=== PATIENT | female | born 1960 | race African-American/Black ===

== ENCOUNTER 2019-04-23 17:23 | Inpatient (IN) ==
[2019-04-23] MEDS ORDERED: SODIUM CHLORIDE 0.9% 1,000 ML IV STA ×2 (17:59→19:13)
[2019-04-23] MEDS ORDERED: ONDANSETRON 4 MG/2 ML VIAL IV STA (17:59)
[2019-04-23 18:15] LABS: Basophils % 0.4 % (0.0-0.8); Eosinophils % 0.4 % (0.00-10.9); Hematocrit 35.2 VOL% (35.7-47.0); Hemoglobin 11.1 GM/DL (12.0-16.0); Immature Granulocytes % 0.4 %; Immature Granulocytes Absolute 0.04 #; Lymphocytes # 1.8 10*3/uL (1.4-4.0); Lymphocytes % 19.2 % (21.3-54.2); Mean Corpuscular HGB Conc 31.5 GM/DL (32-36); Mean Corpuscular Volume 94.9 FL (87-102); Monocytes % 8.4 % (1.7-12.7); Neutrophils % 71.2 % (38.7-73.9); Platelet Count 314 T/CUMM (130-400); Red Blood Count 3.71 MC/CUMM (3.8-5.5); Red Cell Distribution Width 14.7 % (9.3-17.3); White Blood Count 9.5 T/CUMM (4-12)
[2019-04-23 18:38] LABS: Albumin 2.6 G/DL (3.4-5.0); Bilirubin,Total 0.4 MG/DL (0.2-1.0); Calcium 9.1 MG/DL (8.5-10.1); Osmolality,Calculated 273.8 MOS/KG (273-304); Total Protein 8.6 G/DL (6.4-8.3)
[2019-04-23] MEDS ORDERED: POTASSIUM CHLORIDE 20 MEQ TABLET PO STA (18:51)
[2019-04-23 19:41] LABS: Apearance,Urine CLEAR (Clear); Bilirubin,Urine Negative (Negative); Blood, Urine Small mg/dL (Negative); Glucose,Urine (UA) Negative (Negative); Hyaline Casts,Urine 12 /LPF (0-3); Ketones,Urine Negative (Negative); Mucus,Urine Occasional /LPF (Occasional); Nitrite,Urine Negative (Negative); Protein,Urine >=500 MG/DL; RBC,Urine 4 /HPF (0-4); Urine Color Yellow (Yellow); Urine Specific Gravity 1.015 (1.001-1.035); Urine Urobilinogen < 2.0 EU/DL (0.2-1.0); WBC,Urine 2 /HPF (0-6)
[2019-04-23] MEDS ORDERED: hydrALAZINE 20 MG/1 ML VIAL IV STA (19:44)
[2019-04-23] MEDS ORDERED: LABETALOL 20 MG/4 ML SYRINGE IV STA (21:26)
[2019-04-23] MEDS ORDERED: LABETALOL 100 MG/20 ML VIAL IV ONE (21:29)
[2019-04-23] MEDS ORDERED: PROMETHAZINE 25 MG TABLET PO PRN (22:50)
[2019-04-23] MEDS ORDERED: ONDANSETRON 4 MG/2 ML VIAL IV PRN (22:50)
[2019-04-24] MEDS: SODIUM CHLOR 0.9% KCL 40 MEQ 40 MEQ/1,000 ML BAG IV SCH ×2 (00:01→10:16)
[2019-04-24] MEDS: ACETAMINOPHEN 325 MG TABLET PO PRN (02:16)
[2019-04-24 06:22] LABS: Basophils % 0.5 % (0.0-0.8); Eosinophils # 0.1 10*3/uL (0.0-0.87); Eosinophils % 1.2 % (0.00-10.9); Hematocrit 30.2 VOL% (35.7-47.0); Hemoglobin 9.7 GM/DL (12.0-16.0); Immature Granulocytes % 0.5 %; Immature Granulocytes Absolute 0.04 #; Lymphocytes # 2.2 10*3/uL (1.4-4.0); Lymphocytes % 26.4 % (21.3-54.2); Mean Corpuscular HGB Conc 32.1 GM/DL (32-36); Mean Corpuscular Volume 93.8 FL (87-102); Monocytes % 12.2 % (1.7-12.7); Neutrophils % 59.2 % (38.7-73.9); Platelet Count 268 T/CUMM (130-400); Red Blood Count 3.22 MC/CUMM (3.8-5.5); Red Cell Distribution Width 14.8 % (9.3-17.3); White Blood Count 8.5 T/CUMM (4-12)
[2019-04-24 06:33] LABS: Calcium 8.2 MG/DL (8.5-10.1)
[2019-04-24] MEDS: ENOXAPARIN 40 MG/0.4 ML SYRINGE SUBCUT SCH (08:20)
[2019-04-24] MEDS: PANTOPRAZOLE 40 MG TABLET PO SCH (08:23)
[2019-04-24] MEDS: LABETALOL 20 MG/4 ML SYRINGE IV PRN (09:03)
[2019-04-24] MEDS ORDERED: PROMETHAZINE 25 MG TABLET PO PRN (17:56)
[2019-04-24] MEDS ORDERED: MAGNESIUM SULF RIDER 2 GM in PREMIX 1 EACH IV ONE (18:02)
[2019-04-24] MEDS: PREGABALIN 100 MG CAPSULE PO SCH (22:24)
[2019-04-24] MEDS: lisinopriL 20 MG TABLET PO SCH (22:25)
[2019-04-24] MEDS: MYCOPHENOLATE 180 MG TABLET PO SCH (22:26)
[2019-04-24] MEDS: DULoxetine 30 MG CAPSULE PO SCH (22:27)
[2019-04-24] MEDS: HYDROXYCHLOROQUINE 200 MG TABLET PO SCH (22:27)
[2019-04-25 05:12] LABS: Basophils # 0.1 10*3/uL (0.0-0.2); Basophils % 0.4 % (0.0-0.8); Eosinophils # 0.3 10*3/uL (0.0-0.87); Eosinophils % 2.5 % (0.00-10.9); Hemoglobin 8.2 GM/DL (12.0-16.0); Immature Granulocytes % 0.3 %; Immature Granulocytes Absolute 0.04 #; Lymphocytes # 3.7 10*3/uL (1.4-4.0); Lymphocytes % 30.1 % (21.3-54.2); Mean Corpuscular HGB Conc 31.5 GM/DL (32-36); Mean Corpuscular Volume 95.9 FL (87-102); Mean Platelet Volume 11.5 FL (9.6-12.0); Monocytes % 11.7 % (1.7-12.7); Platelet Count 245 T/CUMM (130-400); Red Blood Count 2.71 MC/CUMM (3.8-5.5); Red Cell Distribution Width 15.1 % (9.3-17.3); White Blood Count 12.2 T/CUMM (4-12)
[2019-04-25 05:37] LABS: Calcium 7.9 MG/DL (8.5-10.1); Osmolality,Calculated 281.1 MOS/KG (273-304)
[2019-04-25] MEDS: CYANOCOBALAMIN 500 MCG TABLET PO SCH (08:53)
[2019-04-25] MEDS: DULoxetine 30 MG CAPSULE PO SCH ×2 (08:53→20:50)
[2019-04-25] MEDS: PANTOPRAZOLE 40 MG TABLET PO SCH ×2 (08:53→18:19)
[2019-04-25] MEDS: PREGABALIN 100 MG CAPSULE PO SCH ×2 (08:53→20:50)
[2019-04-25] MEDS: amLODIPine 10 MG TABLET PO SCH (08:53)
[2019-04-25] MEDS: POTASSIUM CHLORIDE 20 MEQ TABLET PO SCH (08:53)
[2019-04-25] MEDS: hydroCHLOROthiazide 12.5 MG CAPSULE PO SCH (08:53)
[2019-04-25] MEDS: CALCIUM (CARBONATE) 600 MG TABLET PO SCH (08:53)
[2019-04-25] MEDS: ATORVASTATIN 40 MG TABLET PO SCH (08:53)
[2019-04-25] MEDS: ENOXAPARIN 40 MG/0.4 ML SYRINGE SUBCUT SCH (08:54)
[2019-04-25] MEDS: HYDROXYCHLOROQUINE 200 MG TABLET PO SCH ×2 (10:50→20:50)
[2019-04-25] MEDS: MYCOPHENOLATE 180 MG TABLET PO SCH ×4 (10:50→20:50)
[2019-04-25] MEDS ORDERED: SODIUM CHLORIDE 0.9% 1,000 ML IV PRN (14:32)
[2019-04-25] MEDS: lisinopriL 20 MG TABLET PO SCH (20:50)
[2019-04-26 05:20] LABS: Basophils # 0.1 10*3/uL (0.0-0.2); Basophils % 0.3 % (0.0-0.8); Eosinophils # 0.4 10*3/uL (0.0-0.87); Eosinophils % 2.4 % (0.00-10.9); Hematocrit 36.2 VOL% (35.7-47.0); Hemoglobin 11.8 GM/DL (12.0-16.0); Immature Granulocytes % 0.5 %; Immature Granulocytes Absolute 0.08 #; Lymphocytes % 18.1 % (21.3-54.2); Mean Corpuscular HGB Conc 32.6 GM/DL (32-36); Mean Platelet Volume 11.5 FL (9.6-12.0); Monocytes % 8.5 % (1.7-12.7); Neutrophils % 70.2 % (38.7-73.9); Platelet Count 218 T/CUMM (130-400); Red Blood Count 3.98 MC/CUMM (3.8-5.5); Red Cell Distribution Width 15.1 % (9.3-17.3); White Blood Count 16.8 T/CUMM (4-12)
[2019-04-26] MEDS: PANTOPRAZOLE 40 MG TABLET PO SCH ×2 (06:00→17:46)
[2019-04-26] MEDS: LACTATED RINGERS 1,000 ML IV SCH (06:36)
[2019-04-26] MEDS: LABETALOL 20 MG/4 ML SYRINGE IV PRN (07:32)
[2019-04-26] MEDS ORDERED: ETOMIDATE 20 MG/10 ML VIAL IV ONE (09:00)
[2019-04-26] MEDS ORDERED: LIDOCAINE 2% 5 ML VIAL ONE (09:00)
[2019-04-26] MEDS ORDERED: propofoL 200 MG/20 ML VIAL IV ONE (09:00)
[2019-04-26] MEDS: MYCOPHENOLATE 180 MG TABLET PO SCH ×4 (09:47→21:26)
[2019-04-26] MEDS: DULoxetine 30 MG CAPSULE PO SCH ×2 (09:47→21:27)
[2019-04-26] MEDS: ATORVASTATIN 40 MG TABLET PO SCH (09:47)
[2019-04-26] MEDS: hydroCHLOROthiazide 12.5 MG CAPSULE PO SCH (09:47)
[2019-04-26] MEDS: CALCIUM (CARBONATE) 600 MG TABLET PO SCH (09:47)
[2019-04-26] MEDS: PREGABALIN 100 MG CAPSULE PO SCH ×2 (09:47→21:25)
[2019-04-26] MEDS: POTASSIUM CHLORIDE 20 MEQ TABLET PO SCH (09:47)
[2019-04-26] MEDS: HYDROXYCHLOROQUINE 200 MG TABLET PO SCH ×2 (09:48→21:27)
[2019-04-26] MEDS: amLODIPine 10 MG TABLET PO SCH (09:48)
[2019-04-26] MEDS: CYANOCOBALAMIN 500 MCG TABLET PO SCH (09:48)
[2019-04-26] MEDS: cefTRIAXone 1,000 MG in SYRINGE 1 EACH IV SCH (15:58)
[2019-04-26] MEDS: AZITHROMYCIN INJ 500 MG in SODIUM CHLORIDE 0.9% 250 ML IV SCH (17:20)
[2019-04-26] MEDS: ACETAMINOPHEN 325 MG TABLET PO PRN (20:05)
[2019-04-26] MEDS: lisinopriL 20 MG TABLET PO SCH (21:26)
[2019-04-27] MEDS: PANTOPRAZOLE 40 MG TABLET PO SCH ×2 (06:01→17:47)
[2019-04-27 07:00] LABS: Basophils # 0.1 10*3/uL (0.0-0.2); Basophils % 0.4 % (0.0-0.8); Eosinophils # 0.9 10*3/uL (0.0-0.87); Eosinophils % 5.4 % (0.00-10.9); Hematocrit 37.9 VOL% (35.7-47.0); Hemoglobin 12.2 GM/DL (12.0-16.0); Immature Granulocytes % 0.4 %; Immature Granulocytes Absolute 0.07 #; Lymphocytes # 3.6 10*3/uL (1.4-4.0); Lymphocytes % 21.4 % (21.3-54.2); Mean Corpuscular HGB Conc 32.2 GM/DL (32-36); Mean Corpuscular Volume 92.4 FL (87-102); Mean Platelet Volume 10.6 FL (9.6-12.0); Monocytes % 8.3 % (1.7-12.7); Neutrophils % 64.1 % (38.7-73.9); Platelet Count 206 T/CUMM (130-400); Red Cell Distribution Width 14.8 % (9.3-17.3); White Blood Count 16.6 T/CUMM (4-12)
[2019-04-27] MEDS: DULoxetine 30 MG CAPSULE PO SCH ×2 (09:01→20:53)
[2019-04-27] MEDS: CALCIUM (CARBONATE) 600 MG TABLET PO SCH (09:01)
[2019-04-27] MEDS: CYANOCOBALAMIN 500 MCG TABLET PO SCH (09:01)
[2019-04-27] MEDS: hydroCHLOROthiazide 12.5 MG CAPSULE PO SCH (09:01)
[2019-04-27] MEDS: ATORVASTATIN 40 MG TABLET PO SCH (09:01)
[2019-04-27] MEDS: MYCOPHENOLATE 180 MG TABLET PO SCH ×4 (09:01→20:53)
[2019-04-27] MEDS: amLODIPine 10 MG TABLET PO SCH (09:01)
[2019-04-27] MEDS: HYDROXYCHLOROQUINE 200 MG TABLET PO SCH ×2 (09:02→20:51)
[2019-04-27] MEDS: POTASSIUM CHLORIDE 20 MEQ TABLET PO SCH (09:02)
[2019-04-27] MEDS: PREGABALIN 100 MG CAPSULE PO SCH ×2 (09:06→20:54)
[2019-04-27] MEDS: LACTATED RINGERS 1,000 ML IV SCH (11:24)
[2019-04-27] MEDS: cefTRIAXone 1,000 MG in SYRINGE 1 EACH IV SCH (14:54)
[2019-04-27] MEDS: ACETAMINOPHEN 325 MG TABLET PO PRN (14:55)
[2019-04-27] MEDS: AZITHROMYCIN INJ 500 MG in SODIUM CHLORIDE 0.9% 250 ML IV SCH (15:00)
[2019-04-27] MEDS: lisinopriL 20 MG TABLET PO SCH (20:52)
[2019-04-28] MEDS: PANTOPRAZOLE 40 MG TABLET PO SCH ×2 (06:15→17:44)
[2019-04-28] MEDS: ACETAMINOPHEN 325 MG TABLET PO PRN (06:16)
[2019-04-28 07:54] LABS: Basophils % 0.4 % (0.0-0.8); Eosinophils # 0.7 10*3/uL (0.0-0.87); Hematocrit 36.2 VOL% (35.7-47.0); Hemoglobin 11.9 GM/DL (12.0-16.0); Immature Granulocytes % 0.2 %; Immature Granulocytes Absolute 0.02 #; Lymphocytes # 2.6 10*3/uL (1.4-4.0); Lymphocytes % 27.7 % (21.3-54.2); Mean Corpuscular HGB Conc 32.9 GM/DL (32-36); Mean Corpuscular Volume 91.9 FL (87-102); Mean Platelet Volume 11.1 FL (9.6-12.0); Monocytes % 10.4 % (1.7-12.7); Neutrophils % 53.3 % (38.7-73.9); Platelet Count 211 T/CUMM (130-400); Red Blood Count 3.94 MC/CUMM (3.8-5.5); Red Cell Distribution Width 14.6 % (9.3-17.3); White Blood Count 9.3 T/CUMM (4-12)
[2019-04-28 08:05] LABS: Calcium 8.6 MG/DL (8.5-10.1)
[2019-04-28] MEDS: CYANOCOBALAMIN 500 MCG TABLET PO SCH (09:02)
[2019-04-28] MEDS: MYCOPHENOLATE 180 MG TABLET PO SCH ×4 (09:02→21:23)
[2019-04-28] MEDS: ATORVASTATIN 40 MG TABLET PO SCH (09:02)
[2019-04-28] MEDS: DULoxetine 30 MG CAPSULE PO SCH ×2 (09:02→21:23)
[2019-04-28] MEDS: CALCIUM (CARBONATE) 600 MG TABLET PO SCH (09:03)
[2019-04-28] MEDS: PREGABALIN 100 MG CAPSULE PO SCH ×2 (09:03→21:23)
[2019-04-28] MEDS: HYDROXYCHLOROQUINE 200 MG TABLET PO SCH ×2 (09:03→21:24)
[2019-04-28] MEDS: POTASSIUM CHLORIDE 20 MEQ TABLET PO SCH (09:03)
[2019-04-28] MEDS: hydroCHLOROthiazide 12.5 MG CAPSULE PO SCH (09:03)
[2019-04-28] MEDS: amLODIPine 10 MG TABLET PO SCH (09:10)
[2019-04-28] MEDS: ZINC OXIDE PASTE 113 GM TUBE TOP SCH ×2 (14:32→21:24)
[2019-04-28] MEDS: cefTRIAXone 1,000 MG in SYRINGE 1 EACH IV SCH (14:32)
[2019-04-28] MEDS: AZITHROMYCIN INJ 500 MG in SODIUM CHLORIDE 0.9% 250 ML IV SCH (16:42)
[2019-04-28] MEDS: lisinopriL 20 MG TABLET PO SCH (21:23)
[2019-04-28] MEDS: AMOXICILLIN 500 MG CAPSULE PO SCH (21:24)
[2019-04-29] MEDS: AMOXICILLIN 500 MG CAPSULE PO SCH (06:00)
[2019-04-29] MEDS: PANTOPRAZOLE 40 MG TABLET PO SCH (06:00)
[2019-04-29 08:32] LABS: Basophils # 0.1 10*3/uL (0.0-0.2); Basophils % 0.5 % (0.0-0.8); Eosinophils # 0.8 10*3/uL (0.0-0.87); Eosinophils % 8.7 % (0.00-10.9); Hematocrit 36.1 VOL% (35.7-47.0); Hemoglobin 11.4 GM/DL (12.0-16.0); Immature Granulocytes % 0.3 %; Immature Granulocytes Absolute 0.03 #; Lymphocytes # 2.8 10*3/uL (1.4-4.0); Lymphocytes % 30.1 % (21.3-54.2); Mean Corpuscular HGB Conc 31.6 GM/DL (32-36); Mean Corpuscular Volume 93.8 FL (87-102); Mean Platelet Volume 11.4 FL (9.6-12.0); Monocytes % 10.8 % (1.7-12.7); Neutrophils % 49.6 % (38.7-73.9); Platelet Count 221 T/CUMM (130-400); Red Blood Count 3.85 MC/CUMM (3.8-5.5); Red Cell Distribution Width 14.5 % (9.3-17.3); White Blood Count 9.3 T/CUMM (4-12)
[2019-04-29 08:49] LABS: Calcium 8.1 MG/DL (8.5-10.1); Osmolality,Calculated 274.8 MOS/KG (273-304)
[2019-04-29] MEDS: DULoxetine 30 MG CAPSULE PO SCH (09:25)
[2019-04-29] MEDS: MYCOPHENOLATE 180 MG TABLET PO SCH (09:25)
[2019-04-29] MEDS: CYANOCOBALAMIN 500 MCG TABLET PO SCH (09:26)
[2019-04-29] MEDS: ACETAMINOPHEN 325 MG TABLET PO PRN (09:26)
[2019-04-29] MEDS: ATORVASTATIN 40 MG TABLET PO SCH (09:26)
[2019-04-29] MEDS: hydroCHLOROthiazide 12.5 MG CAPSULE PO SCH (09:26)
[2019-04-29] MEDS: POTASSIUM CHLORIDE 20 MEQ TABLET PO SCH (09:26)
[2019-04-29] MEDS: amLODIPine 10 MG TABLET PO SCH (09:26)
[2019-04-29] MEDS: PREGABALIN 100 MG CAPSULE PO SCH (09:26)
[2019-04-29] MEDS: CALCIUM (CARBONATE) 600 MG TABLET PO SCH (09:26)
[2019-04-29] MEDS: ZINC OXIDE PASTE 113 GM TUBE TOP SCH (09:27)
[2019-04-29] MEDS: HYDROXYCHLOROQUINE 200 MG TABLET PO SCH (09:27)
[2019-04-29 12:14] VITALS: BP 162/97
== END 2019-04-29 11:45 | disposition home or self-care (01) | DRG 377 ==
LOC: N.EDINP 17:23 → N.ED 17:23 → SUATTDRO 20:35 → N.EDINP 21:54 → N.5E 22:49 → N.2W 04-24 08:25 → N.2E 04-28 14:52
PROVIDERS: ADMIT Internal Medicine; ATTEND Family Medicine

== ENCOUNTER 2019-11-20 06:07 | Inpatient (IN) ==
[2019-11-14 12:26] LABS: Basophils % 0.2 % (0.0-0.8); Eosinophils # 0.2 10*3/uL (0.0-0.87); Eosinophils % 2.2 % (0.00-10.9); Hematocrit 31.2 VOL% (35.7-47.0); Hemoglobin 9.6 GM/DL (12.0-16.0); Immature Granulocytes % 0.5 %; Immature Granulocytes Absolute 0.04 #; Lymphocytes # 2.3 10*3/uL (1.4-4.0); Lymphocytes % 27.2 % (21.3-54.2); Mean Corpuscular HGB Conc 30.8 GM/DL (32-36); Mean Corpuscular Volume 100.3 FL (87-102); Mean Platelet Volume 10.8 FL (9.6-12.0); Monocytes % 9.5 % (1.7-12.7); Neutrophils % 60.4 % (38.7-73.9); Platelet Count 277 T/CUMM (130-400); Red Blood Count 3.11 MC/CUMM (3.8-5.5); Red Cell Distribution Width 14.1 % (9.3-17.3); White Blood Count 8.5 T/CUMM (4-12)
[2019-11-14 12:38] LABS: PT Patient Result 10.3 SECS (9.8-11.9); Partial Thromboplastin Time 24.1 SECS (23.9-33.8)
[2019-11-14 12:42] LABS: Bilirubin,Urine Negative (Negative); Blood, Urine Negative (Negative); Glucose,Urine (UA) Negative (Negative); Ketones,Urine Negative (Negative); Mucus,Urine Occasional /LPF (Occasional); Nitrite,Urine Negative (Negative); Protein,Urine 100 MG/DL; RBC,Urine 1 /HPF (0-4); Squamous Epithelial Cell,Urine Occasional /HPF (0-10); Urine Appearance CLEAR (Clear); Urine Color Straw (Yellow); Urine Specific Gravity 1.011 (1.001-1.035); Urine Urobilinogen < 2.0 EU/DL (0.2-1.0); WBC,Urine <1 /HPF (0-6)
[2019-11-14 12:52] LABS: Albumin 2.8 G/DL (3.4-5.0); Bilirubin,Total 0.8 MG/DL (0.2-1.0); Calcium 9.3 MG/DL (8.5-10.1); Osmolality,Calculated 289.3 MOS/KG (273-304); Total Protein 8.2 G/DL (6.4-8.3)
[~2019-11-20 06:07] MED LIST: VANCOMYCIN INJ 1,000 MG in SODIUM CHLORIDE 0.9% 250 ML IV ONE; ceFAZolin 1,000 MG in SYRINGE 1 EACH IV ONE
[2019-11-20] MEDS ORDERED: VANCOMYCIN 1,000 MG VIAL ONE (06:11)
[2019-11-20] MEDS ORDERED: ceFAZolin 1,000 MG VIAL ONE (06:12)
[2019-11-20] MEDS ORDERED: BACITRACIN OINT 0.9 GM PACK TOP ONE (06:47)
[2019-11-20] MEDS ORDERED: TRANEXAMIC ACID 1,000 MG/10 ML VIAL ONE (07:18)
[2019-11-20] MEDS ORDERED: BUPIVACAINE MPF 0.25% 30 ML VIAL ONE (08:00)
[2019-11-20] MEDS ORDERED: DEXAMETHASONE 4 MG/1 ML VIAL ONE (08:00)
[2019-11-20] MEDS ORDERED: LACTATED RINGERS 1,000 ML IV SCH (08:00)
[2019-11-20] MEDS ORDERED: diphenhydrAMINE CAP 25 MG CAPSULE PO PRN (09:02)
[2019-11-20] MEDS ORDERED: ZALEPLON 5 MG CAPSULE PO PRN (09:02)
[2019-11-20] MEDS ORDERED: MORPHINE 4 MG/1 ML VIAL IV PRN (09:02)
[2019-11-20] MEDS ORDERED: MIDAZOLAM 2 MG/2 ML VIAL ONE (10:35)
[2019-11-20] MEDS ORDERED: fentaNYL 100 MCG/2 ML VIAL ONE (10:35)
[2019-11-20] MEDS ORDERED: propofoL 200 MG/20 ML VIAL IV ONE (10:35)
[2019-11-20] MEDS ORDERED: LIDOCAINE 2% 5 ML VIAL ONE (10:35)
[2019-11-20] MEDS ORDERED: ACETAMINOPHEN 1,000 MG/100 ML VIAL IV ONE (10:35)
[2019-11-20] MEDS ORDERED: SODIUM CHLORIDE 0.9% 100 ML IV ONE (10:36)
[2019-11-20 10:40] LABS: Bilirubin,Urine Negative (Negative); Blood, Urine Negative (Negative); Glucose,Urine (UA) Negative (Negative); Ketones,Urine Negative (Negative); Nitrite,Urine Negative (Negative); Protein,Urine 100 MG/DL; RBC,Urine 1 /HPF (0-4); Urine Appearance CLEAR (Clear); Urine Color Straw (Yellow); Urine Specific Gravity 1.011 (1.001-1.035); Urine Urobilinogen < 2.0 EU/DL (0.2-1.0); WBC,Urine <1 /HPF (0-6)
[2019-11-20] MEDS: ceFAZolin 1,000 MG in SYRINGE 1 EACH IV SCH ×2 (15:31→22:41)
[2019-11-20] MEDS: BACLOFEN 10 MG TABLET PO SCH ×2 (15:31→21:30)
[2019-11-20] MEDS: ONDANSETRON 4 MG/2 ML VIAL IV PRN ×2 (17:03→22:52)
[2019-11-20] MEDS: KETOROLAC 30 MG/1 ML VIAL IV SCH ×3 (17:04→21:19)
[2019-11-20] MEDS: LACTATED RINGERS 1,000 ML IV SCH ×3 (17:05→22:40)
[2019-11-20] MEDS ORDERED: INFLUENZA VIRUS VACCINE 0.5 ML SYRINGE IM ONE (18:26)
[2019-11-20] MEDS: DOCUSATE SODIUM 100 MG CAPSULE PO SCH (21:18)
[2019-11-20] MEDS: FONDAPARINUX 2.5 MG/0.5 ML SYRINGE SUBCUT SCH (21:18)
[2019-11-20] MEDS: MYCOPHENOLATE 180 MG TABLET PO SCH (21:20)
[2019-11-20] MEDS: HYDROXYCHLOROQUINE 200 MG TABLET PO SCH (21:20)
[2019-11-20] MEDS: DULoxetine 30 MG CAPSULE PO SCH (21:20)
[2019-11-21] MEDS: LACTATED RINGERS 1,000 ML IV SCH (02:33)
[2019-11-21] MEDS: KETOROLAC 30 MG/1 ML VIAL IV SCH (04:21)
[2019-11-21 07:00] LABS: Basophils % 0.1 % (0.0-0.8); Eosinophils % 0.1 % (0.00-10.9); Hematocrit 24.8 VOL% (35.7-47.0); Hemoglobin 7.9 GM/DL (12.0-16.0); Immature Granulocytes % 0.4 %; Immature Granulocytes Absolute 0.08 #; Lymphocytes # 1.1 10*3/uL (1.4-4.0); Lymphocytes % 5.8 % (21.3-54.2); Mean Corpuscular HGB Conc 31.9 GM/DL (32-36); Mean Corpuscular Volume 97.6 FL (87-102); Mean Platelet Volume 11.1 FL (9.6-12.0); Monocytes % 8.2 % (1.7-12.7); Neutrophils % 85.4 % (38.7-73.9); Platelet Count 246 T/CUMM (130-400); Red Blood Count 2.54 MC/CUMM (3.8-5.5); Red Cell Distribution Width 14.1 % (9.3-17.3); White Blood Count 18.2 T/CUMM (4-12)
[2019-11-21 07:22] LABS: Calcium 8.4 MG/DL (8.5-10.1); Osmolality,Calculated 293.3 MOS/KG (273-304)
[2019-11-21 07:24] LABS: Band Neutrophils 27 % (0-10); Lymphocytes 8 % (20-55); Nucleated Red Blood Cells 1 (0-5); Platelet Estimate Normal; Segmented Neutrophils 59 % (50-85); Total Cells Counted 100
[2019-11-21 07:25] LABS: Anisocytosis 1+; Macrocytosis Slight; Poikilocytosis Slight
[2019-11-21] MEDS: MORPHINE 4 MG/1 ML VIAL IV PRN ×2 (08:21→21:20)
[2019-11-21] MEDS: ONDANSETRON 4 MG/2 ML VIAL IV PRN (08:23)
[2019-11-21] MEDS: DULoxetine 30 MG CAPSULE PO SCH ×2 (08:28→21:20)
[2019-11-21] MEDS: CHOLECALCIFEROL 1,000 UNIT TABLET PO SCH (08:28)
[2019-11-21] MEDS: MAGNESIUM OXIDE 400 MG TABLET PO SCH (08:29)
[2019-11-21] MEDS: CYANOCOBALAMIN 500 MCG TABLET PO SCH (08:29)
[2019-11-21] MEDS: NEBIVOLOL 10 MG TABLET PO SCH (08:29)
[2019-11-21] MEDS: HYDROXYCHLOROQUINE 200 MG TABLET PO SCH ×2 (08:29→21:20)
[2019-11-21] MEDS: DOCUSATE SODIUM 100 MG CAPSULE PO SCH ×2 (08:29→21:49)
[2019-11-21] MEDS: amLODIPine 10 MG TABLET PO SCH (08:30)
[2019-11-21] MEDS: ATORVASTATIN 40 MG TABLET PO SCH (08:30)
[2019-11-21] MEDS: PANTOPRAZOLE 40 MG TABLET PO SCH (08:30)
[2019-11-21] MEDS: BACLOFEN 10 MG TABLET PO SCH ×3 (08:30→21:20)
[2019-11-21] MEDS: FERROUS SULFATE 325 MG TABLET PO SCH (08:30)
[2019-11-21] MEDS: MYCOPHENOLATE 180 MG TABLET PO SCH ×2 (08:36→21:19)
[2019-11-21] MEDS ORDERED: MAGNESIUM HYDROXIDE SUSP 30 ML UDCUP PO PRN (09:00)
[2019-11-21] MEDS ORDERED: hydroCHLOROthiazide 25 MG TABLET PO SCH (09:00)
[2019-11-21] MEDS: CELECOXIB 200 MG CAPSULE PO SCH (15:14)
[2019-11-21] MEDS: FONDAPARINUX 2.5 MG/0.5 ML SYRINGE SUBCUT SCH (21:19)
[2019-11-22] MEDS: MORPHINE 4 MG/1 ML VIAL IV PRN (03:57)
[2019-11-22 05:43] LABS: Basophils % 0.1 % (0.0-0.8); Eosinophils # 0.3 10*3/uL (0.0-0.87); Eosinophils % 1.6 % (0.00-10.9); Hematocrit 23.4 VOL% (35.7-47.0); Hemoglobin 7.3 GM/DL (12.0-16.0); Immature Granulocytes % 0.6 %; Lymphocytes # 2.7 10*3/uL (1.4-4.0); Lymphocytes % 16.5 % (21.3-54.2); Mean Corpuscular HGB Conc 31.2 GM/DL (32-36); Mean Corpuscular Volume 97.9 FL (87-102); Mean Platelet Volume 11.9 FL (9.6-12.0); Monocytes % 11.3 % (1.7-12.7); Neutrophils % 69.9 % (38.7-73.9); Platelet Count 221 T/CUMM (130-400); Red Blood Count 2.39 MC/CUMM (3.8-5.5); Red Cell Distribution Width 14.3 % (9.3-17.3); White Blood Count 16.2 T/CUMM (4-12)
[2019-11-22 06:05] LABS: Burr Cells Slight; Eosinophils 1 % (0-10); Hypochromasia 1+; Lymphocytes 13 % (20-55); Ovalocytes Slight; Platelet Estimate Adequate; Segmented Neutrophils 76 % (50-85); Total Cells Counted 100
[2019-11-22 06:06] LABS: Macrocytosis Slight
[2019-11-22 06:08] LABS: Calcium 8.8 MG/DL (8.5-10.1); Osmolality,Calculated 292.3 MOS/KG (273-304)
[2019-11-22] MEDS: CELECOXIB 200 MG CAPSULE PO SCH (09:11)
[2019-11-22] MEDS: NEBIVOLOL 10 MG TABLET PO SCH (09:11)
[2019-11-22] MEDS: DULoxetine 30 MG CAPSULE PO SCH ×2 (09:12→20:44)
[2019-11-22] MEDS: FERROUS SULFATE 325 MG TABLET PO SCH (09:12)
[2019-11-22] MEDS: DOCUSATE SODIUM 100 MG CAPSULE PO SCH ×3 (09:12→20:42)
[2019-11-22] MEDS: BACLOFEN 10 MG TABLET PO SCH ×3 (09:12→20:42)
[2019-11-22] MEDS: MAGNESIUM OXIDE 400 MG TABLET PO SCH (09:13)
[2019-11-22] MEDS: ATORVASTATIN 40 MG TABLET PO SCH (09:13)
[2019-11-22] MEDS: amLODIPine 10 MG TABLET PO SCH (09:14)
[2019-11-22] MEDS: MYCOPHENOLATE 180 MG TABLET PO SCH ×2 (09:14→20:42)
[2019-11-22] MEDS: CHOLECALCIFEROL 1,000 UNIT TABLET PO SCH (09:15)
[2019-11-22] MEDS: CYANOCOBALAMIN 500 MCG TABLET PO SCH (09:15)
[2019-11-22] MEDS: PANTOPRAZOLE 40 MG TABLET PO SCH (09:15)
[2019-11-22] MEDS: HYDROXYCHLOROQUINE 200 MG TABLET PO SCH ×2 (09:15→20:42)
[2019-11-22] MEDS ORDERED: PROCHLORPERAZINE 5 MG TABLET PO PRN (16:03)
[2019-11-22] MEDS: FONDAPARINUX 2.5 MG/0.5 ML SYRINGE SUBCUT SCH (20:42)
[2019-11-23 06:36] LABS: Basophils % 0.2 % (0.0-0.8); Eosinophils # 0.3 10*3/uL (0.0-0.87); Eosinophils % 2.4 % (0.00-10.9); Hematocrit 24.2 VOL% (35.7-47.0); Hemoglobin 7.4 GM/DL (12.0-16.0); Immature Granulocytes % 0.7 %; Immature Granulocytes Absolute 0.09 #; Lymphocytes # 1.5 10*3/uL (1.4-4.0); Lymphocytes % 10.8 % (21.3-54.2); Mean Corpuscular HGB Conc 30.6 GM/DL (32-36); Mean Corpuscular Volume 99.2 FL (87-102); Mean Platelet Volume 11.5 FL (9.6-12.0); Neutrophils % 74.9 % (38.7-73.9); Platelet Count 231 T/CUMM (130-400); Red Blood Count 2.44 MC/CUMM (3.8-5.5); Red Cell Distribution Width 14.3 % (9.3-17.3); White Blood Count 13.6 T/CUMM (4-12)
[2019-11-23] MEDS: DOCUSATE SODIUM 100 MG CAPSULE PO SCH (09:24)
[2019-11-23] MEDS: NEBIVOLOL 10 MG TABLET PO SCH (09:24)
[2019-11-23] MEDS: CELECOXIB 200 MG CAPSULE PO SCH (09:24)
[2019-11-23] MEDS: DULoxetine 30 MG CAPSULE PO SCH (09:25)
[2019-11-23] MEDS: MYCOPHENOLATE 180 MG TABLET PO SCH (09:25)
[2019-11-23] MEDS: HYDROXYCHLOROQUINE 200 MG TABLET PO SCH (09:25)
[2019-11-23] MEDS: amLODIPine 10 MG TABLET PO SCH (09:26)
[2019-11-23] MEDS: FERROUS SULFATE 325 MG TABLET PO SCH (09:26)
[2019-11-23] MEDS: BACLOFEN 10 MG TABLET PO SCH (09:26)
[2019-11-23] MEDS: ATORVASTATIN 40 MG TABLET PO SCH (09:26)
[2019-11-23] MEDS: PANTOPRAZOLE 40 MG TABLET PO SCH (09:26)
[2019-11-23] MEDS: CYANOCOBALAMIN 500 MCG TABLET PO SCH (09:26)
[2019-11-23] MEDS: MAGNESIUM OXIDE 400 MG TABLET PO SCH (11:09)
[2019-11-23] MEDS: CHOLECALCIFEROL 1,000 UNIT TABLET PO SCH (11:09)
[2019-11-23 12:46] VITALS: BP 125/86
== END 2019-11-23 14:15 | disposition swing bed (61) | DRG 470 ==
LOC: N.OR 06:07 → N.SDSINP 06:08 → EDSTATUS 10:00 → N.OR 10:15 → N.3E 12:21
PROVIDERS: ADMIT Orthopaedic Surgery; ATTEND Orthopaedic Surgery

== ENCOUNTER 2021-01-18 02:06 | Observation (INO) ==
[2021-01-18] MEDS ORDERED: LABETALOL 20 MG/4 ML SYRINGE IV STA (02:17)
[2021-01-18 02:58] LABS: Basophils % 0.1 % (0.0-0.8); Eosinophils % 0.1 % (0.00-10.9); Hematocrit 29.6 VOL% (35.7-47.0); Hemoglobin 9.1 GM/DL (12.0-16.0); Immature Granulocytes % 0.6 %; Immature Granulocytes Absolute 0.11 #; Lymphocytes # 1.5 10*3/uL (1.4-4.0); Lymphocytes % 8.7 % (21.3-54.2); Mean Corpuscular HGB Conc 30.7 GM/DL (32-36); Mean Corpuscular Volume 95.8 FL (87-102); Mean Platelet Volume 11.8 FL (9.6-12.0); Monocytes % 13.6 % (1.7-12.7); Neutrophils % 76.9 % (38.7-73.9); Platelet Count 232 T/CUMM (130-400); Red Blood Count 3.09 MC/CUMM (3.8-5.5); Red Cell Distribution Width 15.1 % (9.3-17.3); White Blood Count 17.2 T/CUMM (4-12)
[2021-01-18 03:19] LABS: Lactic Acid 0.7 MMOL/L (0.4-2.0)
[2021-01-18 03:21] LABS: Bilirubin,Urine Negative (Negative); Blood, Urine Negative (Negative); Glucose,Urine (UA) Negative (Negative); Hyaline Casts,Urine 2 /LPF (0-3); Ketones,Urine Negative (Negative); Mucus,Urine Occasional /LPF (Occasional); Nitrite,Urine Negative (Negative); Protein,Urine >=500 MG/DL; RBC,Urine <1 /HPF (0-4); Urine Appearance CLEAR (Clear); Urine Color Yellow (Yellow); Urine Specific Gravity 1.011 (1.001-1.035); Urine Urobilinogen < 2.0 EU/DL (0.2-1.0)
[2021-01-18 03:23] LABS: Alanine Aminotransferase 11 U/L (13-56); Albumin 2.2 G/DL (3.4-5.0); Alkaline Phosphatase 81 U/L (45-117); Aspartate Amino Transferase 22 U/L (0-37); Bilirubin,Total < 0.39 MG/DL (0.20-1.00); Blood Urea Nitrogen 48 MG/DL (7-18); Calcium 8.7 MG/DL (8.5-10.1); Carbon Dioxide 21 MMOL/L (21-32); Estimated Glom Filtration Rate 26 ML/MIN; Glucose 110 MG/DL (74-106); Osmolality,Calculated 288.7 MOS/KG (273-304); Potassium 5.9 MMOL/L (3.5-5.1); Sodium 138 MMOL/L (136-145); Total Protein 7.9 G/DL (6.4-8.2)
[2021-01-18 03:35] LABS: Barbiturates Screen,Urine Positive (Negative); Benzodiazepines Screen,Urine Positive (Negative); Cannabinoid Screen,Urine Negative (Negative); Opiate Screen,Urine Positive (Negative); Phencyclidine Screen,Urine Negative (Negative)
[2021-01-18] MEDS ORDERED: DEXTROSE 50% 25 GM/50 ML VIAL IV STA (04:16)
[2021-01-18] MEDS ORDERED: INSULIN REGULAR 100 UNIT/ML IV STA (04:17)
[2021-01-18] MEDS ORDERED: SODIUM CHLORIDE 0.9% 500 ML IV STA (04:19)
[2021-01-18] MEDS ORDERED: MEROPENEM 1,000 MG in SODIUM CHLORIDE 0.9% 100 ML IV STA (04:20)
[2021-01-18] MEDS ORDERED: DEXTROSE 50% 25 GM/50 ML SYRINGE IV STA (04:25)
[2021-01-18] MEDS ORDERED: hydrALAZINE 20 MG/1 ML VIAL IV PRN (07:30)
[2021-01-18] MEDS ORDERED: ONDANSETRON 4 MG/2 ML VIAL IV PRN (07:30)
[2021-01-18] MEDS ORDERED: GLUCAGON 1 MG VIAL IM PRN (07:30)
[2021-01-18] MEDS ORDERED: SODIUM CHLORIDE 0.45% 1,000 ML IV SCH (07:30)
[2021-01-18] MEDS ORDERED: DEXTROSE 50% 25 GM/50 ML SYRINGE IV PRN (07:41)
[2021-01-18] MEDS: INSULIN REGULAR 100 UNIT/ML SUBCUT SCH ×4 (07:49→21:12)
[2021-01-18 08:13] LABS: Thyroid Stimulating Hormone 3.96 uIU/ml (0.358-3.74)
[2021-01-18 08:43] LABS: Calcium 8.2 MG/DL (8.5-10.1); Osmolality,Calculated 294.1 MOS/KG (273-304); Potassium 5.2 MMOL/L (3.5-5.1)
[2021-01-18] MEDS: DOCUSATE SODIUM 100 MG CAPSULE PO SCH ×2 (11:30→21:12)
[2021-01-18] MEDS: PANTOPRAZOLE 40 MG TABLET PO SCH (11:30)
[2021-01-18] MEDS: ACETAMINOPHEN 325 MG TABLET PO PRN ×2 (16:00→21:14)
[2021-01-18] MEDS: SODIUM BICARB INJ 100 MEQ in DEXTROSE 5% 1,000 ML IV SCH (17:22)
[2021-01-18] MEDS: cefTRIAXone 2,000 MG in SODIUM CHLORIDE 0.9% 100 ML IV SCH (17:22)
[2021-01-18] MEDS: HYDROXYCHLOROQUINE 200 MG TABLET PO SCH (21:12)
[2021-01-18] MEDS: MYCOPHENOLATE MOFETIL 250 MG CAPSULE PO SCH (21:12)
[2021-01-19] MEDS: SODIUM BICARB INJ 100 MEQ in DEXTROSE 5% 1,000 ML IV SCH ×2 (13:55→21:36)
[2021-01-19] MEDS: ASPIRIN 325 MG TABLET PO SCH (13:56)
[2021-01-19] MEDS: DOCUSATE SODIUM 100 MG CAPSULE PO SCH ×2 (13:56→21:35)
[2021-01-19] MEDS: MYCOPHENOLATE MOFETIL 250 MG CAPSULE PO SCH ×2 (13:56→21:35)
[2021-01-19] MEDS: ATORVASTATIN 40 MG TABLET PO SCH (13:56)
[2021-01-19] MEDS: INSULIN REGULAR 100 UNIT/ML SUBCUT SCH ×3 (13:56→21:35)
[2021-01-19] MEDS: PANTOPRAZOLE 40 MG TABLET PO SCH (13:57)
[2021-01-19] MEDS: predniSONE 5 MG TABLET PO SCH (13:57)
[2021-01-19] MEDS: amLODIPine 10 MG TABLET PO SCH (13:57)
[2021-01-19] MEDS: HYDROXYCHLOROQUINE 200 MG TABLET PO SCH ×2 (13:57→21:35)
[2021-01-19 14:03] LABS: Calcium 8.1 MG/DL (8.5-10.1); Osmolality,Calculated 290.5 MOS/KG (273-304); Potassium 4.5 MMOL/L (3.5-5.1)
[2021-01-19] MEDS ORDERED: VANCOMYCIN INJ 750 MG in SODIUM CHLORIDE 0.9% 250 ML IV SCH (14:30)
[2021-01-19] MEDS ORDERED: VANCOMYCIN INJ 1,000 MG in SODIUM CHLORIDE 0.9% 250 ML IV PRN (15:04)
[2021-01-19] MEDS ORDERED: VANCOMYCIN INJ 1,000 MG in SODIUM CHLORIDE 0.9% 250 ML IV ONE (16:00)
[2021-01-19 16:09] LABS: Basophils % 0.1 % (0.0-0.8); Eosinophils # 0.2 10*3/uL (0.0-0.87); Eosinophils % 1.5 % (0.00-10.9); Hematocrit 26.1 VOL% (35.7-47.0); Hemoglobin 7.8 GM/DL (12.0-16.0); Immature Granulocytes % 0.5 %; Immature Granulocytes Absolute 0.06 #; Lymphocytes # 2.1 10*3/uL (1.4-4.0); Lymphocytes % 16.3 % (21.3-54.2); Mean Corpuscular HGB Conc 29.9 GM/DL (32-36); Mean Corpuscular Volume 96.7 FL (87-102); Mean Platelet Volume 12.2 FL (9.6-12.0); Neutrophils % 63.6 % (38.7-73.9); Platelet Count 219 T/CUMM (130-400); Red Cell Distribution Width 15.2 % (9.3-17.3)
[2021-01-19] MEDS: cefTRIAXone 2,000 MG in SODIUM CHLORIDE 0.9% 100 ML IV SCH (16:21)
[2021-01-19] MEDS: ENOXAPARIN 30 MG/0.3 ML SYRINGE SUBCUT SCH (16:21)
[2021-01-19] MEDS: ACETAMINOPHEN 325 MG TABLET PO PRN (23:15)
[2021-01-20] MEDS: SODIUM BICARB INJ 100 MEQ in DEXTROSE 5% 1,000 ML IV SCH ×3 (05:55→14:24)
[2021-01-20 07:57] LABS: Basophils % 0.2 % (0.0-0.8); Eosinophils # 0.3 10*3/uL (0.0-0.87); Eosinophils % 2.9 % (0.00-10.9); Hematocrit 21.7 VOL% (35.7-47.0); Hemoglobin 6.8 GM/DL (12.0-16.0); Immature Granulocytes % 0.4 %; Immature Granulocytes Absolute 0.05 #; Lymphocytes # 2.2 10*3/uL (1.4-4.0); Lymphocytes % 18.5 % (21.3-54.2); Mean Corpuscular HGB Conc 31.3 GM/DL (32-36); Mean Corpuscular Volume 95.2 FL (87-102); Mean Platelet Volume 11.6 FL (9.6-12.0); Monocytes % 16.1 % (1.7-12.7); Neutrophils % 61.9 % (38.7-73.9); Platelet Count 202 T/CUMM (130-400); Red Blood Count 2.28 MC/CUMM (3.8-5.5); Red Cell Distribution Width 14.8 % (9.3-17.3); White Blood Count 11.9 T/CUMM (4-12)
[2021-01-20 08:14] LABS: Osmolality,Calculated 286.8 MOS/KG (273-304); Potassium 3.9 MMOL/L (3.5-5.1)
[2021-01-20 08:22] LABS: Eosinophils 3 % (0-10); Hypochromasia 1+; Lymphocytes 15 % (20-55); Microcytosis 1+; Ovalocytes Slight; Platelet Estimate Adequate; Segmented Neutrophils 67 % (50-85); Total Cells Counted 100
[2021-01-20] MEDS: DOCUSATE SODIUM 100 MG CAPSULE PO SCH ×2 (09:03→20:41)
[2021-01-20] MEDS: ATORVASTATIN 40 MG TABLET PO SCH (09:04)
[2021-01-20] MEDS: MYCOPHENOLATE MOFETIL 250 MG CAPSULE PO SCH ×2 (09:04→20:42)
[2021-01-20] MEDS: PANTOPRAZOLE 40 MG TABLET PO SCH (09:04)
[2021-01-20] MEDS: HYDROXYCHLOROQUINE 200 MG TABLET PO SCH ×2 (09:04→20:41)
[2021-01-20] MEDS: predniSONE 5 MG TABLET PO SCH (09:05)
[2021-01-20] MEDS: amLODIPine 10 MG TABLET PO SCH (09:05)
[2021-01-20] MEDS: ASPIRIN 325 MG TABLET PO SCH (09:06)
[2021-01-20] MEDS ORDERED: SODIUM CHLORIDE 0.9% 1,000 ML IV PRN ×2 (10:01→18:30)
[2021-01-20] MEDS: INSULIN REGULAR 100 UNIT/ML SUBCUT SCH ×4 (10:08→20:43)
[2021-01-20] MEDS: cefTRIAXone 2,000 MG in SODIUM CHLORIDE 0.9% 100 ML IV SCH (15:57)
[2021-01-20] MEDS: ENOXAPARIN 30 MG/0.3 ML SYRINGE SUBCUT SCH (15:58)
[2021-01-21 05:50] LABS: Hematocrit 29.7 VOL% (35.7-47.0); Hemoglobin 9.4 GM/DL (12.0-16.0)
[2021-01-21] MEDS: INSULIN REGULAR 100 UNIT/ML SUBCUT SCH ×4 (08:27→21:06)
[2021-01-21] MEDS: predniSONE 5 MG TABLET PO SCH (10:27)
[2021-01-21] MEDS: HYDROXYCHLOROQUINE 200 MG TABLET PO SCH ×2 (10:27→21:05)
[2021-01-21] MEDS: DOCUSATE SODIUM 100 MG CAPSULE PO SCH ×2 (10:27→21:05)
[2021-01-21] MEDS: MYCOPHENOLATE MOFETIL 250 MG CAPSULE PO SCH ×2 (10:27→21:05)
[2021-01-21] MEDS: ATORVASTATIN 40 MG TABLET PO SCH (10:27)
[2021-01-21] MEDS: PANTOPRAZOLE 40 MG TABLET PO SCH (10:27)
[2021-01-21] MEDS: ASPIRIN 325 MG TABLET PO SCH (10:27)
[2021-01-21] MEDS: amLODIPine 10 MG TABLET PO SCH (10:29)
[2021-01-21 10:40] LABS: Basophils % 0.2 % (0.0-0.8); Eosinophils # 0.3 10*3/uL (0.0-0.87); Eosinophils % 2.9 % (0.00-10.9); Hematocrit 29.9 VOL% (35.7-47.0); Immature Granulocytes % 0.6 %; Immature Granulocytes Absolute 0.06 #; Lymphocytes # 2.1 10*3/uL (1.4-4.0); Lymphocytes % 19.8 % (21.3-54.2); Mean Corpuscular HGB Conc 31.8 GM/DL (32-36); Mean Corpuscular Volume 88.7 FL (87-102); Mean Platelet Volume 11.6 FL (9.6-12.0); Monocytes % 18.8 % (1.7-12.7); Neutrophils % 57.7 % (38.7-73.9); Platelet Count 209 T/CUMM (130-400); Red Cell Distribution Width 18.9 % (9.3-17.3); White Blood Count 10.6 T/CUMM (4-12)
[2021-01-21 10:41] LABS: Red Blood Count 3.37 MC/CUMM (3.8-5.5)
[2021-01-21 10:42] LABS: Hemoglobin 9.5 GM/DL (12.0-16.0)
[2021-01-21 10:55] LABS: Alanine Aminotransferase 22 U/L (13-56); Albumin 1.8 G/DL (3.4-5.0); Alkaline Phosphatase 65 U/L (45-117); Aspartate Amino Transferase 29 U/L (0-37); Bilirubin,Total < 0.39 MG/DL (0.20-1.00); Blood Urea Nitrogen 43 MG/DL (7-18); Carbon Dioxide 31 MMOL/L (21-32); Estimated Glom Filtration Rate 25 ML/MIN; Glucose 91 MG/DL (74-106); Potassium 3.8 MMOL/L (3.5-5.1); Sodium 136 MMOL/L (136-145); Total Protein 6.5 G/DL (6.4-8.2)
[2021-01-21 10:59] LABS: Eosinophils 3 % (0-10); Hypochromasia 1+; Lymphocytes 24 % (20-55); Microcytosis 1+; Ovalocytes Slight; Segmented Neutrophils 63 % (50-85); Total Cells Counted 100
[2021-01-21 11:00] LABS: Platelet Estimate Normal
[2021-01-21] MEDS: SODIUM BICARB INJ 100 MEQ in DEXTROSE 5% 1,000 ML IV SCH (12:32)
[2021-01-21] MEDS ORDERED: VANCOMYCIN INJ 1,000 MG in SODIUM CHLORIDE 0.9% 250 ML IV ONE (13:00)
[2021-01-21] MEDS: ENOXAPARIN 30 MG/0.3 ML SYRINGE SUBCUT SCH (13:25)
[2021-01-21] MEDS: cefTRIAXone 2,000 MG in SODIUM CHLORIDE 0.9% 100 ML IV SCH (16:46)
[2021-01-22] MEDS: SODIUM BICARB INJ 100 MEQ in DEXTROSE 5% 1,000 ML IV SCH ×2 (00:53→07:34)
[2021-01-22 04:44] LABS: Basophils % 0.2 % (0.0-0.8); Eosinophils # 0.5 10*3/uL (0.0-0.87); Hematocrit 27.1 VOL% (35.7-47.0); Hemoglobin 8.5 GM/DL (12.0-16.0); Immature Granulocytes % 0.7 %; Immature Granulocytes Absolute 0.07 #; Lymphocytes # 2.1 10*3/uL (1.4-4.0); Lymphocytes % 20.9 % (21.3-54.2); Mean Corpuscular HGB Conc 31.4 GM/DL (32-36); Mean Corpuscular Volume 88.6 FL (87-102); Mean Platelet Volume 11.3 FL (9.6-12.0); Monocytes % 18.9 % (1.7-12.7); Neutrophils % 54.3 % (38.7-73.9); Platelet Count 212 T/CUMM (130-400); Red Blood Count 3.06 MC/CUMM (3.8-5.5); Red Cell Distribution Width 18.3 % (9.3-17.3); White Blood Count 9.9 T/CUMM (4-12)
[2021-01-22 05:12] LABS: Eosinophils 3 % (0-10); Hypochromasia Slight; Lymphocytes 19 % (20-55); Platelet Estimate Normal; Segmented Neutrophils 67 % (50-85); Total Cells Counted 100
[2021-01-22 05:33] LABS: Calcium 8.1 MG/DL (8.5-10.1); Potassium 3.3 MMOL/L (3.5-5.1)
[2021-01-22 05:36] LABS: Albumin 1.6 G/DL (3.4-5.0); Bilirubin,Total 0.9 MG/DL (0.20-1.00); Calcium 7.8 MG/DL (8.5-10.1); Osmolality,Calculated 283.7 MOS/KG (273-304); Potassium 3.4 MMOL/L (3.5-5.1); Total Protein 6.3 G/DL (6.4-8.2)
[2021-01-22] MEDS: INSULIN REGULAR 100 UNIT/ML SUBCUT SCH ×4 (08:27→20:34)
[2021-01-22] MEDS: DOCUSATE SODIUM 100 MG CAPSULE PO SCH ×2 (08:45→20:33)
[2021-01-22] MEDS: PANTOPRAZOLE 40 MG TABLET PO SCH (08:45)
[2021-01-22] MEDS: ATORVASTATIN 40 MG TABLET PO SCH (08:45)
[2021-01-22] MEDS: predniSONE 5 MG TABLET PO SCH (08:45)
[2021-01-22] MEDS: MYCOPHENOLATE MOFETIL 250 MG CAPSULE PO SCH ×2 (08:45→20:34)
[2021-01-22] MEDS: ASPIRIN 325 MG TABLET PO SCH (08:45)
[2021-01-22] MEDS: HYDROXYCHLOROQUINE 200 MG TABLET PO SCH ×2 (08:45→20:33)
[2021-01-22] MEDS: amLODIPine 10 MG TABLET PO SCH (08:46)
[2021-01-22] MEDS ORDERED: POTASSIUM CHLORIDE 20 MEQ TABLET PO ONE (09:00)
[2021-01-22] MEDS: ENOXAPARIN 30 MG/0.3 ML SYRINGE SUBCUT SCH (14:37)
[2021-01-22] MEDS: cefTRIAXone 2,000 MG in SODIUM CHLORIDE 0.9% 100 ML IV SCH (15:34)
[2021-01-23 05:08] LABS: Basophils % 0.2 % (0.0-0.8); Eosinophils # 0.4 10*3/uL (0.0-0.87); Eosinophils % 4.7 % (0.00-10.9); Hematocrit 28.5 VOL% (35.7-47.0); Hemoglobin 8.7 GM/DL (12.0-16.0); Immature Granulocytes % 0.9 %; Immature Granulocytes Absolute 0.08 #; Lymphocytes # 1.2 10*3/uL (1.4-4.0); Lymphocytes % 12.7 % (21.3-54.2); Mean Corpuscular HGB Conc 30.5 GM/DL (32-36); Mean Corpuscular Volume 90.5 FL (87-102); Mean Platelet Volume 11.6 FL (9.6-12.0); Monocytes % 19.7 % (1.7-12.7); Neutrophils % 61.8 % (38.7-73.9); Platelet Count 210 T/CUMM (130-400); Red Blood Count 3.15 MC/CUMM (3.8-5.5); Red Cell Distribution Width 17.8 % (9.3-17.3)
[2021-01-23 05:30] LABS: Calcium 8.4 MG/DL (8.5-10.1); Potassium 4.6 MMOL/L (3.5-5.1)
[2021-01-23 05:38] LABS: Eosinophils 7 % (0-10); Lymphocytes 14 % (20-55); Platelet Estimate Adequate; Segmented Neutrophils 69 % (50-85); Total Cells Counted 100
[2021-01-23 05:39] LABS: Hypochromasia 1+; Microcytosis 1+
[2021-01-23] MEDS: INSULIN REGULAR 100 UNIT/ML SUBCUT SCH ×2 (08:38→12:34)
[2021-01-23] MEDS: amLODIPine 10 MG TABLET PO SCH (08:51)
[2021-01-23] MEDS: MYCOPHENOLATE MOFETIL 250 MG CAPSULE PO SCH (08:51)
[2021-01-23] MEDS: ATORVASTATIN 40 MG TABLET PO SCH (08:51)
[2021-01-23] MEDS: PANTOPRAZOLE 40 MG TABLET PO SCH (08:51)
[2021-01-23] MEDS: DOCUSATE SODIUM 100 MG CAPSULE PO SCH (08:51)
[2021-01-23] MEDS: ASPIRIN 325 MG TABLET PO SCH (08:51)
[2021-01-23] MEDS: predniSONE 5 MG TABLET PO SCH (08:52)
[2021-01-23] MEDS: HYDROXYCHLOROQUINE 200 MG TABLET PO SCH (08:52)
[2021-01-23 12:53] VITALS: BP 150/75
== END 2021-01-23 16:00 | disposition swing bed (61) ==
LOC: N.ED 02:06 → N.EDINP 02:06 → SUATTDRO 05:53 → N.TELEN 15:45 → SUATTDRO 01-20 14:35
PROVIDERS: ADMIT Emergency Medicine; ATTEND Internal Medicine

== ENCOUNTER 2021-08-03 12:40 | Inpatient (IN) ==
[2021-08-03] MEDS ORDERED: HYDROmorphone 1 MG/1 ML SYRINGE IM STA (18:55)
[2021-08-03] MEDS ORDERED: NICOTINE 21 MG/24 HR PATCH TRANSDERM PRN (21:26)
[2021-08-03] MEDS ORDERED: ZALEPLON 5 MG CAPSULE PO PRN (21:26)
[2021-08-03] MEDS ORDERED: ONDANSETRON 4 MG/2 ML VIAL IV PRN (21:26)
[2021-08-03] MEDS ORDERED: ALBUTEROL/IPRATROPIUM 3 ML NEB RESP TX PRN (21:26)
[2021-08-03] MEDS ORDERED: GLUCAGON 1 MG VIAL IM PRN (21:26)
[2021-08-03] MEDS ORDERED: guaiFENesin/DM ER 600-30 MG TABLET PO PRN (21:26)
[2021-08-03] MEDS ORDERED: diphenhydrAMINE CAP 25 MG CAPSULE PO PRN (21:26)
[2021-08-03] MEDS ORDERED: hydrALAZINE 20 MG/1 ML VIAL IV PRN (21:26)
[2021-08-03] MEDS ORDERED: DEXTROSE 10% 250 ML BAG IV PRN (21:29)
[2021-08-03 22:25] LABS: Basophils % 0.1 % (0.0-0.8); Hematocrit 18.9 VOL% (35.7-47.0); Immature Granulocytes % 1.1 %; Immature Granulocytes Absolute 0.23 #; Lymphocytes # 1.3 10*3/uL (1.4-4.0); Lymphocytes % 6.2 % (21.3-54.2); Mean Corpuscular HGB Conc 29.6 GM/DL (32-36); Mean Corpuscular Volume 101.6 FL (87-102); Mean Platelet Volume 11.1 FL (9.6-12.0); Monocytes # 2.5 10*3/uL (0.11-0.8); Neutrophils % 80.6 % (38.7-73.9); Platelet Count 197 T/CUMM (130-400); Red Blood Count 1.86 MC/CUMM (3.8-5.5); Red Cell Distribution Width 13.7 % (9.3-17.3); White Blood Count 20.5 T/CUMM (4-12)
[2021-08-03 22:32] LABS: Hemoglobin 5.6 GM/DL (12.0-16.0)
[2021-08-03 22:34] LABS: PT Patient Result 11.4 SECS (10.5-12.0)
[2021-08-03] MEDS ORDERED: ACETAMINOPHEN 325 MG TABLET PO PRN (22:37)
[2021-08-03] MEDS ORDERED: diphenhydrAMINE 50 MG/1 ML VIAL IV PRN (22:37)
[2021-08-03] MEDS ORDERED: SODIUM CHLORIDE 0.9% 1,000 ML IV PRN (22:37)
[2021-08-03] MEDS ORDERED: FUROSEMIDE 40 MG/4 ML VIAL IV PRN (22:43)
[2021-08-03 22:48] LABS: Lymphocytes 5 % (20-55); Total Cells Counted 100
[2021-08-03 22:49] LABS: Platelet Estimate Normal
[2021-08-03] MEDS: MORPHINE 2 MG/1 ML SYRINGE IV PRN (22:50)
[2021-08-03] MEDS: DEXTROSE 5% NACL 0.9% 1,000 ML IV SCH (22:55)
[2021-08-03 22:59] LABS: Calcium 8.9 MG/DL (8.5-10.1); Osmolality,Calculated 293.5 MOS/KG (273-304); Potassium 4.4 MMOL/L (3.5-5.1)
[2021-08-04 01:04] LABS: Basophils % 0.1 % (0.0-0.8); Eosinophils % 0.1 % (0.00-10.9); Hematocrit 21.2 VOL% (35.7-47.0); Immature Granulocytes % 0.6 %; Immature Granulocytes Absolute 0.11 #; Lymphocytes # 1.7 10*3/uL (1.4-4.0); Lymphocytes % 9.5 % (21.3-54.2); Mean Corpuscular HGB Conc 30.2 GM/DL (32-36); Mean Corpuscular Volume 99.5 FL (87-102); Mean Platelet Volume 11.1 FL (9.6-12.0); Monocytes # 2.7 10*3/uL (0.11-0.8); Monocytes % 14.9 % (1.7-12.7); Neutrophils % 74.8 % (38.7-73.9); Platelet Count 192 T/CUMM (130-400); Red Blood Count 2.13 MC/CUMM (3.8-5.5); Red Cell Distribution Width 13.8 % (9.3-17.3)
[2021-08-04 01:06] LABS: Hemoglobin 6.4 GM/DL (12.0-16.0)
[2021-08-04 01:24] LABS: Osmolality,Calculated 291.8 MOS/KG (273-304); Potassium 4.4 MMOL/L (3.5-5.1)
[2021-08-04 01:48] LABS: RBC,Urine <1 /HPF (0-4); Squamous Epithelial Cell,Urine Occasional /HPF (0-10)
[2021-08-04 01:49] LABS: Bilirubin,Urine Negative (Negative); Blood, Urine Small mg/dL (Negative); Glucose,Urine (UA) Negative (Negative); Ketones,Urine Negative (Negative); Nitrite,Urine Negative (Negative); Protein,Urine >=300 mg/dL (Negative); Urine Appearance Clear (Clear); Urine Color Yellow (Yellow); Urine Urobilinogen 0.2 eU/dL (<2.0)
[2021-08-04] MEDS: MORPHINE 2 MG/1 ML SYRINGE IV PRN ×4 (04:22→20:49)
[2021-08-04] MEDS ORDERED: SODIUM CHLORIDE 0.9% 1,000 ML IV PRN (06:24)
[2021-08-04 09:38] LABS: Hematocrit 28.7 VOL% (35.7-47.0); Hemoglobin 9.5 GM/DL (12.0-16.0)
[2021-08-04] MEDS: DEXTROSE 5% NACL 0.9% 1,000 ML IV SCH ×2 (09:50→21:00)
[2021-08-04] MEDS: PANTOPRAZOLE 40 MG TABLET PO SCH (10:40)
[2021-08-04] MEDS: amLODIPine 10 MG TABLET PO SCH (20:47)
[2021-08-04] MEDS: NEBIVOLOL 10 MG TABLET PO SCH (20:47)
[2021-08-04] MEDS: ATORVASTATIN 40 MG TABLET PO SCH (20:47)
[2021-08-04] MEDS: HYDROXYCHLOROQUINE 200 MG TABLET PO SCH (20:47)
[2021-08-05 04:49] LABS: Basophils % 0.1 % (0.0-0.8); Eosinophils # 0.3 10*3/uL (0.0-0.87); Eosinophils % 2.5 % (0.00-10.9); Hematocrit 29.1 VOL% (35.7-47.0); Hemoglobin 9.4 GM/DL (12.0-16.0); Immature Granulocytes % 0.7 %; Immature Granulocytes Absolute 0.09 #; Lymphocytes # 1.6 10*3/uL (1.4-4.0); Lymphocytes % 12.1 % (21.3-54.2); Mean Corpuscular HGB Conc 32.3 GM/DL (32-36); Mean Corpuscular Volume 94.8 FL (87-102); Mean Platelet Volume 11.2 FL (9.6-12.0); Monocytes % 14.9 % (1.7-12.7); Neutrophils % 69.7 % (38.7-73.9); Platelet Count 154 T/CUMM (130-400); Red Blood Count 3.07 MC/CUMM (3.8-5.5); Red Cell Distribution Width 14.8 % (9.3-17.3); White Blood Count 13.4 T/CUMM (4-12)
[2021-08-05 05:11] LABS: Calcium 8.5 MG/DL (8.5-10.1); Osmolality,Calculated 294.5 MOS/KG (273-304); Potassium 4.1 MMOL/L (3.5-5.1)
[2021-08-05] MEDS ORDERED: PANTOPRAZOLE 40 MG VIAL IV ONE (06:49)
[2021-08-05] MEDS ORDERED: GABAPENTIN 400 MG CAPSULE PO ONE (06:49)
[2021-08-05] MEDS ORDERED: ACETAMINOPHEN 500 MG TABLET PO ONE (06:49)
[2021-08-05] MEDS: PANTOPRAZOLE 40 MG TABLET PO SCH (10:02)
[2021-08-05] MEDS: HYDROXYCHLOROQUINE 200 MG TABLET PO SCH ×2 (10:03→21:35)
[2021-08-05] MEDS ORDERED: LACTATED RINGERS 1,000 ML IV SCH (11:00)
[2021-08-05] MEDS ORDERED: MIDAZOLAM 2 MG/2 ML VIAL ONE ×2 (11:18→12:36)
[2021-08-05] MEDS ORDERED: BUPIVACAINE SPINAL 0.75% 2 ML AMP SPINAL ONE (11:18)
[2021-08-05] MEDS ORDERED: DEXMEDETOMIDINE 200 MCG/2 ML VIAL ONE (11:18)
[2021-08-05] MEDS ORDERED: fentaNYL 100 MCG/2 ML VIAL ONE (11:19)
[2021-08-05] MEDS ORDERED: buprenorphine HCL 0.3 MG/ML VIAL ONE (11:19)
[2021-08-05] MEDS ORDERED: PHENYLEPHRINE 1 MG/10 ML SYRINGE IV ONE (12:14)
[2021-08-05] MEDS ORDERED: ONDANSETRON 4 MG/2 ML VIAL ONE (12:14)
[2021-08-05] MEDS ORDERED: HYDROCORTISONE 100 MG VIAL ONE (12:23)
[2021-08-05] MEDS ORDERED: TRANEXAMIC ACID 1,000 MG/10 ML VIAL ONE (12:24)
[2021-08-05] MEDS ORDERED: BACITRACIN OINT 0.9 GM PACK TOP ONE (12:25)
[2021-08-05] MEDS ORDERED: SODIUM CHLORIDE 0.9% 100 ML IV ONE (12:36)
[2021-08-05] MEDS ORDERED: MAGNESIUM HYDROXIDE SUSP 30 ML UDCUP PO PRN (13:02)
[2021-08-05] MEDS ORDERED: ROPIVACAINE 0.5% 30 ML VIAL ONE (13:09)
[2021-08-05] MEDS ORDERED: DEXAMETHASONE 4 MG/1 ML VIAL ONE (13:09)
[2021-08-05] MEDS: LACTATED RINGERS 1,000 ML IV SCH (13:45)
[2021-08-05] MEDS: DEXTROSE 5% NACL 0.9% 1,000 ML IV SCH (15:46)
[2021-08-05] MEDS: DOCUSATE SODIUM 100 MG CAPSULE PO SCH (21:35)
[2021-08-05] MEDS: amLODIPine 10 MG TABLET PO SCH (21:35)
[2021-08-05] MEDS: ATORVASTATIN 40 MG TABLET PO SCH (21:36)
[2021-08-05] MEDS: NEBIVOLOL 10 MG TABLET PO SCH (21:36)
[2021-08-06] MEDS: LACTATED RINGERS 1,000 ML IV SCH ×3 (00:31→21:00)
[2021-08-06 05:38] LABS: Basophils % 0.1 % (0.0-0.8); Hematocrit 29.1 VOL% (35.7-47.0); Hemoglobin 9.3 GM/DL (12.0-16.0); Immature Granulocytes % 0.5 %; Immature Granulocytes Absolute 0.07 #; Lymphocytes # 0.6 10*3/uL (1.4-4.0); Lymphocytes % 4.5 % (21.3-54.2); Mean Platelet Volume 11.3 FL (9.6-12.0); Monocytes # 1.4 10*3/uL (0.11-0.8); Monocytes % 10.9 % (1.7-12.7); Platelet Count 177 T/CUMM (130-400); Red Blood Count 3.03 MC/CUMM (3.8-5.5); Red Cell Distribution Width 14.3 % (9.3-17.3); White Blood Count 13.2 T/CUMM (4-12)
[2021-08-06 05:54] LABS: Calcium 8.3 MG/DL (8.5-10.1); Osmolality,Calculated 292.7 MOS/KG (273-304); Potassium 4.6 MMOL/L (3.5-5.1)
[2021-08-06 05:58] LABS: Lymphocytes 1 % (20-55); Total Cells Counted 100
[2021-08-06 05:59] LABS: Microcytosis 1+; Ovalocytes Slight; Platelet Estimate Adequate
[2021-08-06] MEDS: HYDROXYCHLOROQUINE 200 MG TABLET PO SCH ×2 (09:32→20:56)
[2021-08-06] MEDS: PANTOPRAZOLE 40 MG TABLET PO SCH (09:32)
[2021-08-06] MEDS: ENOXAPARIN 30 MG/0.3 ML SYRINGE SUBCUT SCH (09:32)
[2021-08-06] MEDS: DOCUSATE SODIUM 100 MG CAPSULE PO SCH ×2 (09:32→21:00)
[2021-08-06] MEDS: MORPHINE 2 MG/1 ML SYRINGE IV PRN (09:42)
[2021-08-06] MEDS ORDERED: FUROSEMIDE 40 MG/4 ML VIAL IV ONE (12:00)
[2021-08-06] MEDS: METOCLOPRAMIDE 10 MG TABLET PO SCH (17:58)
[2021-08-06] MEDS: amLODIPine 10 MG TABLET PO SCH (20:55)
[2021-08-06] MEDS: NEBIVOLOL 10 MG TABLET PO SCH (20:55)
[2021-08-06] MEDS: ATORVASTATIN 40 MG TABLET PO SCH (20:55)
[2021-08-07 04:50] LABS: Basophils % 0.1 % (0.0-0.8); Eosinophils # 0.4 10*3/uL (0.0-0.87); Eosinophils % 3.1 % (0.00-10.9); Hemoglobin 8.2 GM/DL (12.0-16.0); Immature Granulocytes % 0.6 %; Immature Granulocytes Absolute 0.07 #; Lymphocytes # 2.1 10*3/uL (1.4-4.0); Lymphocytes % 16.5 % (21.3-54.2); Mean Corpuscular HGB Conc 31.5 GM/DL (32-36); Mean Corpuscular Volume 96.7 FL (87-102); Mean Platelet Volume 11.6 FL (9.6-12.0); Monocytes # 1.7 10*3/uL (0.11-0.8); Monocytes % 13.4 % (1.7-12.7); Neutrophils % 66.3 % (38.7-73.9); Platelet Count 177 T/CUMM (130-400); Red Blood Count 2.69 MC/CUMM (3.8-5.5); Red Cell Distribution Width 14.1 % (9.3-17.3); White Blood Count 12.6 T/CUMM (4-12)
[2021-08-07 05:07] LABS: Calcium 7.8 MG/DL (8.5-10.1); Osmolality,Calculated 291.8 MOS/KG (273-304); Potassium 4.1 MMOL/L (3.5-5.1)
[2021-08-07] MEDS: LACTATED RINGERS 1,000 ML IV SCH (05:41)
[2021-08-07] MEDS: MORPHINE 2 MG/1 ML SYRINGE IV PRN ×2 (08:56→13:22)
[2021-08-07] MEDS: DOCUSATE SODIUM 100 MG CAPSULE PO SCH ×2 (08:57→20:39)
[2021-08-07] MEDS: HYDROXYCHLOROQUINE 200 MG TABLET PO SCH ×2 (08:57→20:40)
[2021-08-07] MEDS: METOCLOPRAMIDE 10 MG TABLET PO SCH ×2 (08:57→16:07)
[2021-08-07] MEDS: ENOXAPARIN 30 MG/0.3 ML SYRINGE SUBCUT SCH (08:57)
[2021-08-07] MEDS: PANTOPRAZOLE 40 MG TABLET PO SCH (08:57)
[2021-08-07] MEDS ORDERED: FUROSEMIDE 40 MG/4 ML VIAL IV ONE (09:00)
[2021-08-07 15:15] LABS: Bacteria,Urine Moderate /HPF (Few); Mucus,Urine Occasional /LPF (Occasional); RBC,Urine 2 /HPF (0-4)
[2021-08-07 15:19] LABS: Bilirubin,Urine Negative (Negative); Blood, Urine Trace mg/dL (Negative); Glucose,Urine (UA) Negative (Negative); Ketones,Urine Negative (Negative); Nitrite,Urine Negative (Negative); Protein,Urine 30 mg/dL (Negative); Urine Appearance Clear (Clear); Urine Color Yellow (Yellow); Urine Urobilinogen 0.2 eU/dL (<2.0); Urine pH 5.5 (4.5-8.0)
[2021-08-07] MEDS: NEBIVOLOL 10 MG TABLET PO SCH (20:39)
[2021-08-07] MEDS: ATORVASTATIN 40 MG TABLET PO SCH (20:39)
[2021-08-07] MEDS: amLODIPine 10 MG TABLET PO SCH (20:39)
[2021-08-08 04:42] LABS: Basophils % 0.2 % (0.0-0.8); Eosinophils # 0.3 10*3/uL (0.0-0.87); Eosinophils % 3.1 % (0.00-10.9); Hematocrit 27.6 VOL% (35.7-47.0); Hemoglobin 8.7 GM/DL (12.0-16.0); Immature Granulocytes % 0.5 %; Immature Granulocytes Absolute 0.06 #; Lymphocytes # 1.9 10*3/uL (1.4-4.0); Lymphocytes % 17.5 % (21.3-54.2); Mean Corpuscular HGB Conc 31.5 GM/DL (32-36); Mean Corpuscular Volume 96.5 FL (87-102); Mean Platelet Volume 11.3 FL (9.6-12.0); Monocytes # 1.9 10*3/uL (0.11-0.8); Monocytes % 16.8 % (1.7-12.7); Neutrophils % 61.9 % (38.7-73.9); Platelet Count 208 T/CUMM (130-400); Red Blood Count 2.86 MC/CUMM (3.8-5.5); Red Cell Distribution Width 13.7 % (9.3-17.3)
[2021-08-08 04:57] LABS: Calcium 8.6 MG/DL (8.5-10.1); Osmolality,Calculated 293.5 MOS/KG (273-304); Potassium 4.4 MMOL/L (3.5-5.1)
[2021-08-08 05:23] LABS: Eosinophils 5 % (0-10); Lymphocytes 8 % (20-55); Total Cells Counted 100
[2021-08-08 05:24] LABS: Platelet Estimate Adequate; Poikilocytosis 1+
[2021-08-08 05:25] LABS: Schistocytes 1+
[2021-08-08 05:26] LABS: Acanthocytes 1+
[2021-08-08] MEDS: METOCLOPRAMIDE 10 MG TABLET PO SCH (08:14)
[2021-08-08] MEDS: DOCUSATE SODIUM 100 MG CAPSULE PO SCH (08:14)
[2021-08-08] MEDS: HYDROXYCHLOROQUINE 200 MG TABLET PO SCH (08:15)
[2021-08-08] MEDS: ENOXAPARIN 30 MG/0.3 ML SYRINGE SUBCUT SCH (08:18)
[2021-08-08] MEDS: PANTOPRAZOLE 40 MG TABLET PO SCH (08:22)
[2021-08-08 11:35] VITALS: BP 135/74
== END 2021-08-08 13:36 | disposition swing bed (61) | DRG 481 ==
LOC: N.ED 12:40 → N.EDINP 21:26 → SUATTDRO 21:26 → N.EDINP 23:30 → N.3E 23:45
PROVIDERS: ADMIT Internal Medicine; ATTEND Family Medicine

== ENCOUNTER 2021-09-18 21:33 | Inpatient (IN) ==
[2021-09-18] MEDS ORDERED: SODIUM CHLORIDE 0.9% 500 ML IV STA (22:09)
[2021-09-18 22:25] LABS: Arterial Base Excess iSTAT -6 MMOL/L (-2.5-2.5); Arterial Bicarbonate iSTAT 18.9 MMOL/L (20-26); Arterial O2 Saturation iSTAT 97 % (95-100); Arterial PCO2 iSTAT 33 MM HG (35-48); Arterial PO2 iSTAT 95 MM HG (80-95); Arterial Total CO2 iSTAT 20 MMO/L (23-27); Arterial pH iSTAT 7.364 (7.35-7.45)
[2021-09-18 23:32] LABS: Basophils % 0.2 % (0.0-0.8); Eosinophils # 0.2 10*3/uL (0.0-0.87); Eosinophils % 2.1 % (0.00-10.9); Hematocrit 29.5 VOL% (35.7-47.0); Hemoglobin 9.1 GM/DL (12.0-16.0); Immature Granulocytes % 0.4 %; Immature Granulocytes Absolute 0.04 #; Lymphocytes # 1.6 10*3/uL (1.4-4.0); Lymphocytes % 16.2 % (21.3-54.2); Mean Corpuscular HGB Conc 30.8 GM/DL (32-36); Mean Corpuscular Volume 92.2 FL (87-102); Mean Platelet Volume 10.7 FL (9.6-12.0); Monocytes # 0.7 10*3/uL (0.11-0.8); Monocytes % 7.5 % (1.7-12.7); Neutrophils % 73.6 % (38.7-73.9); Platelet Count 378 T/CUMM (130-400); Red Cell Distribution Width 13.8 % (9.3-17.3); White Blood Count 9.9 T/CUMM (4-12)
[2021-09-18 23:51] LABS: Alanine Aminotransferase 10 U/L (13-56); Albumin 2.9 G/DL (3.4-5.0); Alkaline Phosphatase 89 U/L (45-117); Aspartate Amino Transferase 10 U/L (0-37); Bilirubin,Total < 0.39 MG/DL (0.20-1.00); Blood Urea Nitrogen 114 MG/DL (7-18); Calcium 8.8 MG/DL (8.5-10.1); Carbon Dioxide 19 MMOL/L (21-32); Chloride 110 MMOL/L (98-107); Glucose 109 MG/DL (74-106); Osmolality,Calculated 313.5 MOS/KG (273-304); Potassium 4.8 MMOL/L (3.5-5.1); Sodium 139 MMOL/L (136-145); Total Protein 7.8 G/DL (6.4-8.2)
[2021-09-19] MEDS ORDERED: ONDANSETRON 4 MG/2 ML VIAL IV PRN (00:18)
[2021-09-19 00:20] LABS: Bacteria,Urine Moderate /HPF (Few); RBC,Urine 5 /HPF (0-4)
[2021-09-19 00:21] LABS: Bilirubin,Urine Negative (Negative); Blood, Urine Trace mg/dL (Negative); Glucose,Urine (UA) Negative (Negative); Ketones,Urine Negative (Negative); Nitrite,Urine Negative (Negative); Protein,Urine >=300 mg/dL (Negative); Urine Appearance CLOUDY (Clear); Urine Color Yellow (Yellow); Urine Urobilinogen 0.2 eU/dL (<2.0); Urine pH 5.5 (4.5-8.0)
[2021-09-19] MEDS ORDERED: cefTRIAXone 1,000 MG in SODIUM CHLORIDE 0.9% 100 ML IV STA (00:49)
[2021-09-19 04:10] LABS: Barbiturates Screen,Urine Negative (Negative); Benzodiazepines Screen,Urine Negative (Negative); Cannabinoid Screen,Urine Negative (Negative); Opiate Screen,Urine Positive (Negative); Phencyclidine Screen,Urine Negative (Negative)
[2021-09-19] MEDS: DEXTROSE 5% NACL 0.45% 1,000 ML IV SCH ×3 (04:30→19:36)
[2021-09-19] MEDS: PANTOPRAZOLE 40 MG TABLET PO SCH (09:40)
[2021-09-19] MEDS: DOCUSATE SODIUM 100 MG CAPSULE PO SCH ×2 (09:40→21:36)
[2021-09-19] MEDS ORDERED: PROMETHAZINE 25 MG/1 ML VIAL IM PRN (14:16)
[2021-09-19] MEDS: DULoxetine 30 MG CAPSULE PO SCH (21:44)
[2021-09-19] MEDS: MYCOPHENOLATE MOFETIL 250 MG CAPSULE PO SCH (21:44)
[2021-09-19] MEDS: HYDROXYCHLOROQUINE 200 MG TABLET PO SCH (21:45)
[2021-09-19] MEDS: NEBIVOLOL 10 MG TABLET PO SCH (21:45)
[2021-09-19] MEDS: ATORVASTATIN 40 MG TABLET PO SCH (21:45)
[2021-09-19] MEDS: predniSONE 5 MG TABLET PO SCH (21:45)
[2021-09-19] MEDS: BRIMONIDINE/TIMOLOL OPH SOLN 5 ML BOTTLE BOTH EYES SCH (21:46)
[2021-09-19] MEDS: TRAVOPROST 0.004% OPH SOLN 2.5 ML BOTTLE BOTH EYES SCH (21:46)
[2021-09-19] MEDS: METOCLOPRAMIDE 10 MG TABLET PO SCH (21:53)
[2021-09-19] MEDS: SEVELAMER CARBONATE 800 MG TABLET PO SCH (21:54)
[2021-09-20] MEDS: DEXTROSE 5% NACL 0.45% 1,000 ML IV SCH ×2 (01:01→08:57)
[2021-09-20 05:52] LABS: Calcium 8.2 MG/DL (8.5-10.1); Osmolality,Calculated 307.7 MOS/KG (273-304); Phosphorous 4.7 MG/DL (2.5-4.9); Potassium 4.2 MMOL/L (3.5-5.1)
[2021-09-20 05:58] LABS: Basophils % 0.3 % (0.0-0.8); Eosinophils # 0.3 10*3/uL (0.0-0.87); Eosinophils % 4.3 % (0.00-10.9); Hematocrit 23.2 VOL% (35.7-47.0); Immature Granulocytes % 1.1 %; Immature Granulocytes Absolute 0.09 #; Lymphocytes # 1.4 10*3/uL (1.4-4.0); Lymphocytes % 17.5 % (21.3-54.2); Mean Corpuscular HGB Conc 31.9 GM/DL (32-36); Mean Corpuscular Volume 92.1 FL (87-102); Monocytes # 0.7 10*3/uL (0.11-0.8); Monocytes % 8.5 % (1.7-12.7); Neutrophils % 68.3 % (38.7-73.9); Red Blood Count 2.52 MC/CUMM (3.8-5.5); Red Cell Distribution Width 13.9 % (9.3-17.3); White Blood Count 7.9 T/CUMM (4-12)
[2021-09-20 06:08] LABS: Hemoglobin 7.4 GM/DL (12.0-16.0); Platelet Count 237 T/CUMM (130-400)
[2021-09-20] MEDS: HYDROXYCHLOROQUINE 200 MG TABLET PO SCH ×2 (08:51→22:20)
[2021-09-20] MEDS: SEVELAMER CARBONATE 800 MG TABLET PO SCH ×3 (08:51→16:04)
[2021-09-20] MEDS: DULoxetine 30 MG CAPSULE PO SCH ×2 (08:51→22:20)
[2021-09-20] MEDS: MYCOPHENOLATE MOFETIL 250 MG CAPSULE PO SCH ×2 (08:51→22:19)
[2021-09-20] MEDS: METOCLOPRAMIDE 10 MG TABLET PO SCH ×2 (08:51→16:04)
[2021-09-20] MEDS: DOCUSATE SODIUM 100 MG CAPSULE PO SCH ×2 (08:51→22:20)
[2021-09-20] MEDS: PANTOPRAZOLE 40 MG TABLET PO SCH (08:52)
[2021-09-20] MEDS: CHOLECALCIFEROL 1,000 UNIT TABLET PO SCH (08:52)
[2021-09-20] MEDS: SODIUM BICARB INJ 100 MEQ in DEXTROSE 5% NACL 0.22% 1,000 ML IV SCH (16:07)
[2021-09-20] MEDS: BRIMONIDINE/TIMOLOL OPH SOLN 5 ML BOTTLE BOTH EYES SCH ×2 (19:25→22:24)
[2021-09-20] MEDS: ATORVASTATIN 40 MG TABLET PO SCH (22:18)
[2021-09-20] MEDS: predniSONE 5 MG TABLET PO SCH (22:19)
[2021-09-20] MEDS: TRAVOPROST 0.004% OPH SOLN 2.5 ML BOTTLE BOTH EYES SCH (22:24)
[2021-09-20] MEDS: NEBIVOLOL 10 MG TABLET PO SCH (22:24)
[2021-09-21] MEDS: cefTRIAXone 1,000 MG in SODIUM CHLORIDE 0.9% 100 ML IV SCH (02:36)
[2021-09-21] MEDS: SODIUM BICARB INJ 100 MEQ in DEXTROSE 5% NACL 0.22% 1,000 ML IV SCH ×2 (02:41→14:53)
[2021-09-21 06:50] LABS: Basophils % 0.1 % (0.0-0.8); Eosinophils # 0.3 10*3/uL (0.0-0.87); Eosinophils % 3.8 % (0.00-10.9); Hematocrit 21.7 VOL% (35.7-47.0); Immature Granulocytes % 0.4 %; Immature Granulocytes Absolute 0.03 #; Lymphocytes # 1.2 10*3/uL (1.4-4.0); Lymphocytes % 15.3 % (21.3-54.2); Mean Corpuscular HGB Conc 32.3 GM/DL (32-36); Mean Corpuscular Volume 90.8 FL (87-102); Monocytes # 0.8 10*3/uL (0.11-0.8); Monocytes % 9.4 % (1.7-12.7); Platelet Count 201 T/CUMM (130-400); Red Blood Count 2.39 MC/CUMM (3.8-5.5); Red Cell Distribution Width 13.5 % (9.3-17.3)
[2021-09-21 07:16] LABS: Calcium 8.1 MG/DL (8.5-10.1); Osmolality,Calculated 299.8 MOS/KG (273-304); Potassium 3.6 MMOL/L (3.5-5.1)
[2021-09-21] MEDS: BRIMONIDINE/TIMOLOL OPH SOLN 5 ML BOTTLE BOTH EYES SCH ×2 (09:10→22:48)
[2021-09-21] MEDS: CHOLECALCIFEROL 1,000 UNIT TABLET PO SCH (09:10)
[2021-09-21] MEDS: MYCOPHENOLATE MOFETIL 250 MG CAPSULE PO SCH ×2 (09:10→22:13)
[2021-09-21] MEDS: PANTOPRAZOLE 40 MG TABLET PO SCH (09:11)
[2021-09-21] MEDS: FERROUS SULFATE 325 MG TABLET PO SCH ×2 (09:11→22:12)
[2021-09-21] MEDS: DULoxetine 30 MG CAPSULE PO SCH ×2 (09:11→22:12)
[2021-09-21] MEDS: METOCLOPRAMIDE 10 MG TABLET PO SCH ×2 (09:11→16:59)
[2021-09-21] MEDS: HYDROXYCHLOROQUINE 200 MG TABLET PO SCH ×2 (09:11→22:13)
[2021-09-21] MEDS: DOCUSATE SODIUM 100 MG CAPSULE PO SCH ×2 (09:11→22:12)
[2021-09-21] MEDS: SEVELAMER CARBONATE 800 MG TABLET PO SCH ×3 (09:11→16:59)
[2021-09-21] MEDS ORDERED: SODIUM CHLORIDE 0.9% 1,000 ML IV PRN (10:00)
[2021-09-21] MEDS ORDERED: FUROSEMIDE 20 MG/2 ML VIAL IV ONE (10:02)
[2021-09-21] MEDS: ACETAMINOPHEN 325 MG TABLET PO PRN ×2 (13:43→22:11)
[2021-09-21 19:41] LABS: Hematocrit 28.7 VOL% (35.7-47.0); Hemoglobin 9.7 GM/DL (12.0-16.0)
[2021-09-21] MEDS: predniSONE 5 MG TABLET PO SCH (22:12)
[2021-09-21] MEDS: ATORVASTATIN 40 MG TABLET PO SCH (22:13)
[2021-09-21] MEDS: NEBIVOLOL 10 MG TABLET PO SCH (22:17)
[2021-09-21] MEDS: TRAVOPROST 0.004% OPH SOLN 2.5 ML BOTTLE BOTH EYES SCH (22:50)
[2021-09-22] MEDS: SODIUM BICARB INJ 100 MEQ in DEXTROSE 5% NACL 0.22% 1,000 ML IV SCH ×3 (00:10→22:57)
[2021-09-22] MEDS: cefTRIAXone 1,000 MG in SODIUM CHLORIDE 0.9% 100 ML IV SCH (02:13)
[2021-09-22] MEDS: MYCOPHENOLATE MOFETIL 250 MG CAPSULE PO SCH ×2 (10:23→21:51)
[2021-09-22] MEDS: FERROUS SULFATE 325 MG TABLET PO SCH ×2 (10:23→21:52)
[2021-09-22] MEDS: HYDROXYCHLOROQUINE 200 MG TABLET PO SCH ×2 (10:24→21:52)
[2021-09-22] MEDS: SEVELAMER CARBONATE 800 MG TABLET PO SCH ×3 (10:24→16:49)
[2021-09-22] MEDS: CHOLECALCIFEROL 1,000 UNIT TABLET PO SCH (10:25)
[2021-09-22] MEDS: METOCLOPRAMIDE 10 MG TABLET PO SCH ×2 (10:25→16:49)
[2021-09-22] MEDS: DOCUSATE SODIUM 100 MG CAPSULE PO SCH ×2 (10:25→21:51)
[2021-09-22] MEDS: PANTOPRAZOLE 40 MG TABLET PO SCH (10:25)
[2021-09-22] MEDS: DULoxetine 30 MG CAPSULE PO SCH ×2 (10:25→21:51)
[2021-09-22] MEDS: BRIMONIDINE/TIMOLOL OPH SOLN 5 ML BOTTLE BOTH EYES SCH ×2 (10:32→21:52)
[2021-09-22] MEDS: hydrALAZINE 25 MG TABLET PO SCH ×2 (16:49→21:51)
[2021-09-22] MEDS: ACETAMINOPHEN 325 MG TABLET PO PRN (16:49)
[2021-09-22] MEDS: ATORVASTATIN 40 MG TABLET PO SCH (21:51)
[2021-09-22] MEDS: NEBIVOLOL 10 MG TABLET PO SCH (21:51)
[2021-09-22] MEDS: TRAVOPROST 0.004% OPH SOLN 2.5 ML BOTTLE BOTH EYES SCH (21:52)
[2021-09-22] MEDS: predniSONE 5 MG TABLET PO SCH (22:26)
[2021-09-23 05:20] LABS: Basophils % 0.2 % (0.0-0.8); Eosinophils # 0.3 10*3/uL (0.0-0.87); Eosinophils % 3.4 % (0.00-10.9); Hematocrit 28.2 VOL% (35.7-47.0); Hemoglobin 9.4 GM/DL (12.0-16.0); Immature Granulocytes % 0.6 %; Immature Granulocytes Absolute 0.06 #; Lymphocytes # 1.2 10*3/uL (1.4-4.0); Lymphocytes % 12.8 % (21.3-54.2); Mean Corpuscular HGB Conc 33.3 GM/DL (32-36); Mean Corpuscular Volume 86.2 FL (87-102); Monocytes # 0.9 10*3/uL (0.11-0.8); Monocytes % 9.7 % (1.7-12.7); Neutrophils % 73.3 % (38.7-73.9); Platelet Count 172 T/CUMM (130-400); Red Blood Count 3.27 MC/CUMM (3.8-5.5); Red Cell Distribution Width 14.6 % (9.3-17.3); White Blood Count 9.5 T/CUMM (4-12)
[2021-09-23 05:32] LABS: Albumin 2.2 G/DL (3.4-5.0); Calcium 7.8 MG/DL (8.5-10.1); Osmolality,Calculated 291.7 MOS/KG (273-304); Phosphorous 2.9 MG/DL (2.5-4.9); Potassium 3.5 MMOL/L (3.5-5.1)
[2021-09-23] MEDS: SEVELAMER CARBONATE 800 MG TABLET PO SCH ×3 (08:34→18:42)
[2021-09-23] MEDS: METOCLOPRAMIDE 10 MG TABLET PO SCH ×2 (08:34→18:42)
[2021-09-23] MEDS: hydrALAZINE 25 MG TABLET PO SCH ×2 (08:34→20:20)
[2021-09-23] MEDS: MYCOPHENOLATE MOFETIL 250 MG CAPSULE PO SCH ×2 (08:34→20:19)
[2021-09-23] MEDS: HYDROXYCHLOROQUINE 200 MG TABLET PO SCH ×2 (08:35→20:19)
[2021-09-23] MEDS: DOCUSATE SODIUM 100 MG CAPSULE PO SCH ×2 (08:35→20:20)
[2021-09-23] MEDS: FERROUS SULFATE 325 MG TABLET PO SCH ×2 (08:35→20:20)
[2021-09-23] MEDS: PANTOPRAZOLE 40 MG TABLET PO SCH (08:35)
[2021-09-23] MEDS: DULoxetine 30 MG CAPSULE PO SCH ×2 (08:35→20:19)
[2021-09-23] MEDS: CHOLECALCIFEROL 1,000 UNIT TABLET PO SCH (08:35)
[2021-09-23] MEDS: BRIMONIDINE/TIMOLOL OPH SOLN 5 ML BOTTLE BOTH EYES SCH ×2 (08:35→20:20)
[2021-09-23] MEDS: cefTRIAXone 1,000 MG in SODIUM CHLORIDE 0.9% 100 ML IV SCH (08:35)
[2021-09-23] MEDS: SODIUM BICARB INJ 100 MEQ in DEXTROSE 5% NACL 0.22% 1,000 ML IV SCH (08:36)
[2021-09-23] MEDS: NEBIVOLOL 10 MG TABLET PO SCH (20:19)
[2021-09-23] MEDS: ATORVASTATIN 40 MG TABLET PO SCH (20:19)
[2021-09-23] MEDS: predniSONE 5 MG TABLET PO SCH (20:19)
[2021-09-23] MEDS: TRAVOPROST 0.004% OPH SOLN 2.5 ML BOTTLE BOTH EYES SCH (20:20)
[2021-09-23 20:37] VITALS: BP 157/88
== END 2021-09-23 20:45 | DRG 682 ==
LOC: EDUNIT# → N.ED 21:33 → N.EDINP 09-19 00:18 → N.5E 09-19 17:16
PROVIDERS: ADMIT Internal Medicine; ATTEND Internal Medicine

== ENCOUNTER 2021-10-25 17:54 | Inpatient (IN) ==
[2021-10-25] MEDS ORDERED: ONDANSETRON 4 MG/2 ML VIAL IV STA (18:19)
[2021-10-25] MEDS ORDERED: SODIUM CHLORIDE 0.9% 1,000 ML IV STA (18:19)
[2021-10-25 18:51] LABS: Basophils % 0.2 % (0.0-0.8); Eosinophils # 0.3 10*3/uL (0.0-0.87); Eosinophils % 1.7 % (0.00-10.9); Hematocrit 31.1 VOL% (35.7-47.0); Hemoglobin 9.7 GM/DL (12.0-16.0); Immature Granulocytes % 0.6 %; Immature Granulocytes Absolute 0.12 #; Lymphocytes # 2.1 10*3/uL (1.4-4.0); Lymphocytes % 11.3 % (21.3-54.2); Mean Corpuscular HGB Conc 31.2 GM/DL (32-36); Mean Corpuscular Volume 93.1 FL (87-102); Mean Platelet Volume 10.9 FL (9.6-12.0); Monocytes # 1.1 10*3/uL (0.11-0.8); Monocytes % 5.6 % (1.7-12.7); Neutrophils % 80.6 % (38.7-73.9); Platelet Count 210 T/CUMM (130-400); Red Blood Count 3.34 MC/CUMM (3.8-5.5); Red Cell Distribution Width 16.2 % (9.3-17.3); White Blood Count 18.6 T/CUMM (4-12)
[2021-10-25 19:09] LABS: Alanine Aminotransferase 10 U/L (13-56); Alkaline Phosphatase 74 U/L (45-117); Amylase 196 U/L (25-115); Aspartate Amino Transferase 15 U/L (0-37); Bilirubin,Total < 0.39 MG/DL (0.20-1.00); Blood Urea Nitrogen 70 MG/DL (7-18); Calcium 8.9 MG/DL (8.5-10.1); Carbon Dioxide 17 MMOL/L (21-32); Chloride 113 MMOL/L (98-107); Glucose 94 MG/DL (74-106); Osmolality,Calculated 297.5 MOS/KG (273-304); Potassium 4.5 MMOL/L (3.5-5.1); Sodium 139 MMOL/L (136-145)
[2021-10-25 19:19] LABS: Bacteria,Urine Occasional /HPF (Few); RBC,Urine 15-20 /HPF (0-4); Urine Appearance Cloudy (Clear); Urine Color Yellow (Yellow); Urine pH 6.5 (4.5-8.0)
[2021-10-25 19:20] LABS: Bilirubin,Urine Negative (Negative); Blood, Urine Trace mg/dL (Negative); Glucose,Urine (UA) Negative (Negative); Ketones,Urine Negative (Negative); Nitrite,Urine Positive (Negative); Protein,Urine >=300 mg/dL (Negative); Urine Urobilinogen 0.2 eU/dL (<2.0)
[2021-10-25] MEDS ORDERED: PIPERACILLIN/TAZOBACTAM 3,375 MG in SODIUM CHLORIDE 0.9% 100 ML IV STA (19:58)
[2021-10-25] MEDS ORDERED: ONDANSETRON 4 MG/2 ML VIAL IV PRN (21:54)
[2021-10-25 21:55] LABS: Arterial Base Excess iSTAT -8 MMOL/L (-2.5-2.5); Arterial Bicarbonate iSTAT 17.2 MMOL/L (20-26); Arterial O2 Saturation iSTAT 96 % (95-100); Arterial PCO2 iSTAT 34 MM HG (35-48); Arterial PO2 iSTAT 88 MM HG (80-95); Arterial Total CO2 iSTAT 18 MMO/L (23-27)
[2021-10-25] MEDS: SODIUM CHLORIDE 0.9% 1,000 ML IV SCH (22:35)
[2021-10-26] MEDS: PIPERACILLIN/TAZOBACTAM 3,375 MG in SODIUM CHLORIDE 0.9% 100 ML IV SCH ×3 (04:31→21:35)
[2021-10-26 06:16] LABS: Basophils % 0.2 % (0.0-0.8); Eosinophils # 0.2 10*3/uL (0.0-0.87); Eosinophils % 1.6 % (0.00-10.9); Hematocrit 28.4 VOL% (35.7-47.0); Hemoglobin 8.6 GM/DL (12.0-16.0); Immature Granulocytes % 1.1 %; Immature Granulocytes Absolute 0.16 #; Lymphocytes # 1.7 10*3/uL (1.4-4.0); Lymphocytes % 12.3 % (21.3-54.2); Mean Corpuscular HGB Conc 30.3 GM/DL (32-36); Mean Corpuscular Volume 94.7 FL (87-102); Mean Platelet Volume 10.9 FL (9.6-12.0); Monocytes % 6.9 % (1.7-12.7); Neutrophils % 77.9 % (38.7-73.9); Platelet Count 188 T/CUMM (130-400); Red Cell Distribution Width 16.5 % (9.3-17.3)
[2021-10-26 06:34] LABS: Alanine Aminotransferase 13 U/L (13-56); Albumin 2.7 G/DL (3.4-5.0); Alkaline Phosphatase 66 U/L (45-117); Aspartate Amino Transferase 11 U/L (0-37); Bilirubin,Total < 0.39 MG/DL (0.20-1.00); Blood Urea Nitrogen 65 MG/DL (7-18); Calcium 8.5 MG/DL (8.5-10.1); Carbon Dioxide 18 MMOL/L (21-32); Chloride 117 MMOL/L (98-107); Glucose 93 MG/DL (74-106); Potassium 4.3 MMOL/L (3.5-5.1); Sodium 143 MMOL/L (136-145); Total Protein 6.8 G/DL (6.4-8.2)
[2021-10-26] MEDS: PANTOPRAZOLE 40 MG VIAL IV SCH (08:47)
[2021-10-26] MEDS: ASPIRIN CHEW 81 MG TABLET PO SCH (08:47)
[2021-10-26] MEDS: amLODIPine 5 MG TABLET PO SCH (08:47)
[2021-10-26] MEDS: SODIUM CHLORIDE 0.9% 1,000 ML IV SCH (10:12)
[2021-10-26] MEDS ORDERED: PROMETHAZINE 25 MG/1 ML VIAL IM PRN (14:24)
[2021-10-26] MEDS ORDERED: hydrALAZINE 20 MG/1 ML VIAL IV SCH (14:30)
[2021-10-26] MEDS: methylPREDNISolone SOD SUC 40 MG/1 ML VIAL IV SCH (14:55)
[2021-10-26] MEDS: SODIUM BICARB INJ 50 MEQ in DEXTROSE 5% NACL 0.45% 1,000 ML IV SCH (16:50)
[2021-10-26] MEDS: METOCLOPRAMIDE 10 MG TABLET PO SCH (16:51)
[2021-10-26] MEDS: SEVELAMER CARBONATE 800 MG TABLET PO SCH (16:51)
[2021-10-26] MEDS: HYDROXYCHLOROQUINE 200 MG TABLET PO SCH (21:26)
[2021-10-26] MEDS: DULoxetine 30 MG CAPSULE PO SCH (21:27)
[2021-10-26] MEDS: DOCUSATE SODIUM 100 MG CAPSULE PO SCH (21:27)
[2021-10-26] MEDS: MYCOPHENOLATE MOFETIL 250 MG CAPSULE PO SCH (21:27)
[2021-10-26] MEDS: NEBIVOLOL 10 MG TABLET PO SCH (21:27)
[2021-10-26] MEDS: TRAVOPROST 0.004% OPH SOLN 2.5 ML BOTTLE BOTH EYES SCH (21:33)
[2021-10-26] MEDS: BRIMONIDINE/TIMOLOL OPH SOLN 5 ML BOTTLE BOTH EYES SCH (21:33)
[2021-10-27] MEDS: SODIUM BICARB INJ 50 MEQ in DEXTROSE 5% NACL 0.45% 1,000 ML IV SCH ×3 (02:35→21:02)
[2021-10-27] MEDS: metroNIDAZOLE INJ 500 MG/100 ML PREMIX IV SCH ×2 (02:58→13:00)
[2021-10-27] MEDS: methylPREDNISolone SOD SUC 40 MG/1 ML VIAL IV SCH ×2 (03:04→16:52)
[2021-10-27] MEDS: PIPERACILLIN/TAZOBACTAM 3,375 MG in SODIUM CHLORIDE 0.9% 100 ML IV SCH ×3 (06:07→21:03)
[2021-10-27] MEDS: ACETAMINOPHEN 325 MG TABLET PO PRN ×2 (06:26→18:33)
[2021-10-27 06:41] LABS: Basophils % 0.1 % (0.0-0.8); Eosinophils # 0.1 10*3/uL (0.0-0.87); Eosinophils % 0.8 % (0.00-10.9); Hematocrit 24.2 VOL% (35.7-47.0); Hemoglobin 7.5 GM/DL (12.0-16.0); Immature Granulocytes % 0.8 %; Immature Granulocytes Absolute 0.07 #; Lymphocytes # 0.9 10*3/uL (1.4-4.0); Lymphocytes % 9.6 % (21.3-54.2); Mean Corpuscular Volume 93.1 FL (87-102); Mean Platelet Volume 10.6 FL (9.6-12.0); Monocytes # 0.3 10*3/uL (0.11-0.8); Monocytes % 3.4 % (1.7-12.7); Neutrophils % 85.3 % (38.7-73.9); Platelet Count 154 T/CUMM (130-400); Red Cell Distribution Width 16.5 % (9.3-17.3); White Blood Count 9.2 T/CUMM (4-12)
[2021-10-27 07:06] LABS: Alanine Aminotransferase 9 U/L (13-56); Albumin 2.5 G/DL (3.4-5.0); Alkaline Phosphatase 54 U/L (45-117); Aspartate Amino Transferase 9 U/L (0-37); Bilirubin,Total < 0.39 MG/DL (0.20-1.00); Blood Urea Nitrogen 57 MG/DL (7-18); Calcium 8.7 MG/DL (8.5-10.1); Carbon Dioxide 17 MMOL/L (21-32); Chloride 115 MMOL/L (98-107); Glucose 119 MG/DL (74-106); Osmolality,Calculated 297.3 MOS/KG (273-304); Potassium 4.2 MMOL/L (3.5-5.1); Sodium 141 MMOL/L (136-145); Total Protein 6.4 G/DL (6.4-8.2)
[2021-10-27] MEDS: METOCLOPRAMIDE 10 MG TABLET PO SCH ×2 (10:34→17:29)
[2021-10-27] MEDS: SEVELAMER CARBONATE 800 MG TABLET PO SCH ×3 (10:35→16:44)
[2021-10-27] MEDS: ASPIRIN CHEW 81 MG TABLET PO SCH (10:35)
[2021-10-27] MEDS: DOCUSATE SODIUM 100 MG CAPSULE PO SCH ×2 (10:35→20:58)
[2021-10-27] MEDS: MYCOPHENOLATE MOFETIL 250 MG CAPSULE PO SCH ×2 (10:35→20:57)
[2021-10-27] MEDS: BRIMONIDINE/TIMOLOL OPH SOLN 5 ML BOTTLE BOTH EYES SCH ×2 (10:36→20:59)
[2021-10-27] MEDS: amLODIPine 5 MG TABLET PO SCH (10:36)
[2021-10-27] MEDS: HYDROXYCHLOROQUINE 200 MG TABLET PO SCH ×2 (10:36→20:58)
[2021-10-27] MEDS: DULoxetine 30 MG CAPSULE PO SCH ×2 (10:36→20:57)
[2021-10-27] MEDS: SODIUM ZIRCONIUM CYCLOSILICATE 10 GM PACK PO SCH (10:36)
[2021-10-27] MEDS: PANTOPRAZOLE 40 MG VIAL IV SCH ×2 (10:36→20:58)
[2021-10-27] MEDS ORDERED: SODIUM CHLORIDE 0.9% 1,000 ML IV PRN (11:33)
[2021-10-27] MEDS ORDERED: FUROSEMIDE 20 MG/2 ML VIAL IV ONE (11:38)
[2021-10-27] MEDS: ZINC/COPPER/MANGANESE/SELENIUM 1 ML, MULTIVITAMIN INJ 10 ML in AMINO ACIDS/DEXT/LYTES 4... IV SCH (16:45)
[2021-10-27] MEDS: NEBIVOLOL 10 MG TABLET PO SCH (20:57)
[2021-10-27] MEDS: TRAVOPROST 0.004% OPH SOLN 2.5 ML BOTTLE BOTH EYES SCH (20:59)
[2021-10-27 22:18] LABS: Hematocrit 32.5 VOL% (35.7-47.0); Hemoglobin 10.4 GM/DL (12.0-16.0)
[2021-10-28] MEDS: metroNIDAZOLE INJ 500 MG/100 ML PREMIX IV SCH ×2 (03:09→13:00)
[2021-10-28] MEDS: methylPREDNISolone SOD SUC 40 MG/1 ML VIAL IV SCH ×2 (03:16→16:30)
[2021-10-28] MEDS: PIPERACILLIN/TAZOBACTAM 3,375 MG in SODIUM CHLORIDE 0.9% 100 ML IV SCH ×3 (05:21→22:00)
[2021-10-28 06:03] LABS: Basophils % 0.1 % (0.0-0.8); Eosinophils # 0.1 10*3/uL (0.0-0.87); Hematocrit 32.9 VOL% (35.7-47.0); Hemoglobin 10.6 GM/DL (12.0-16.0); Immature Granulocytes % 0.9 %; Lymphocytes % 9.6 % (21.3-54.2); Mean Corpuscular HGB Conc 32.2 GM/DL (32-36); Mean Corpuscular Volume 90.4 FL (87-102); Mean Platelet Volume 10.8 FL (9.6-12.0); Monocytes # 0.5 10*3/uL (0.11-0.8); Neutrophils % 83.4 % (38.7-73.9); Platelet Count 150 T/CUMM (130-400); Red Blood Count 3.64 MC/CUMM (3.8-5.5); Red Cell Distribution Width 16.2 % (9.3-17.3); White Blood Count 10.8 T/CUMM (4-12)
[2021-10-28 06:47] LABS: Calcium 8.4 MG/DL (8.5-10.1); Osmolality,Calculated 292.8 MOS/KG (273-304); Potassium 4.2 MMOL/L (3.5-5.1)
[2021-10-28] MEDS: DULoxetine 30 MG CAPSULE PO SCH ×2 (09:05→22:00)
[2021-10-28] MEDS: METOCLOPRAMIDE 10 MG TABLET PO SCH ×2 (09:05→16:59)
[2021-10-28] MEDS: MYCOPHENOLATE MOFETIL 250 MG CAPSULE PO SCH ×2 (09:05→22:00)
[2021-10-28] MEDS: DOCUSATE SODIUM 100 MG CAPSULE PO SCH ×2 (09:05→22:01)
[2021-10-28] MEDS: busPIRone 5 MG TABLET PO SCH ×2 (09:05→22:00)
[2021-10-28] MEDS: amLODIPine 10 MG TABLET PO SCH (09:05)
[2021-10-28] MEDS: ASPIRIN CHEW 81 MG TABLET PO SCH (09:06)
[2021-10-28] MEDS: SEVELAMER CARBONATE 800 MG TABLET PO SCH ×3 (09:06→17:00)
[2021-10-28] MEDS: HYDROXYCHLOROQUINE 200 MG TABLET PO SCH ×2 (09:06→22:00)
[2021-10-28] MEDS: BRIMONIDINE/TIMOLOL OPH SOLN 5 ML BOTTLE BOTH EYES SCH ×2 (09:07→22:01)
[2021-10-28] MEDS: SODIUM ZIRCONIUM CYCLOSILICATE 10 GM PACK PO SCH ×2 (09:07→09:17)
[2021-10-28] MEDS: PANTOPRAZOLE 40 MG VIAL IV SCH ×2 (09:09→22:28)
[2021-10-28] MEDS: BISACODYL 5 MG TABLET PO SCH ×2 (10:00→16:59)
[2021-10-28] MEDS: SODIUM BICARB INJ 50 MEQ in DEXTROSE 5% NACL 0.45% 1,000 ML IV SCH ×3 (10:30→22:18)
[2021-10-28] MEDS ORDERED: POLYETHYLENE GLYCOL 3350/ELECTROLYTES 4,000 ML BOTTLE PO ONE (18:00)
[2021-10-28] MEDS: ACETAMINOPHEN 325 MG TABLET PO PRN (19:04)
[2021-10-28] MEDS ORDERED: MAGNESIUM HYDROXIDE SUSP 30 ML UDCUP PO ONE (21:00)
[2021-10-28] MEDS ORDERED: MAGNESIUM CITRATE 300 ML BOTTLE PO ONE (21:00)
[2021-10-28] MEDS: NEBIVOLOL 10 MG TABLET PO SCH (22:00)
[2021-10-28] MEDS: TRAVOPROST 0.004% OPH SOLN 2.5 ML BOTTLE BOTH EYES SCH (22:00)
[2021-10-28] MEDS: ZINC/COPPER/MANGANESE/SELENIUM 1 ML, MULTIVITAMIN INJ 10 ML in AMINO ACIDS/DEXT/LYTES 4... IV SCH (22:00)
[2021-10-29] MEDS: BISACODYL 5 MG TABLET PO SCH (00:38)
[2021-10-29] MEDS: metroNIDAZOLE INJ 500 MG/100 ML PREMIX IV SCH (02:08)
[2021-10-29] MEDS: methylPREDNISolone SOD SUC 40 MG/1 ML VIAL IV SCH ×2 (02:09→16:30)
[2021-10-29] MEDS: PIPERACILLIN/TAZOBACTAM 3,375 MG in SODIUM CHLORIDE 0.9% 100 ML IV SCH (03:50)
[2021-10-29 05:10] LABS: Basophils % 0.2 % (0.0-0.8); Eosinophils # 0.4 10*3/uL (0.0-0.87); Hematocrit 36.5 VOL% (35.7-47.0); Hemoglobin 11.2 GM/DL (12.0-16.0); Immature Granulocytes % 1.2 %; Immature Granulocytes Absolute 0.16 #; Lymphocytes # 1.5 10*3/uL (1.4-4.0); Lymphocytes % 11.7 % (21.3-54.2); Mean Corpuscular HGB Conc 30.7 GM/DL (32-36); Mean Corpuscular Volume 91.3 FL (87-102); Mean Platelet Volume 10.3 FL (9.6-12.0); Monocytes % 7.6 % (1.7-12.7); Neutrophils % 76.3 % (38.7-73.9); Platelet Count 159 T/CUMM (130-400); Red Cell Distribution Width 16.1 % (9.3-17.3); White Blood Count 13.2 T/CUMM (4-12)
[2021-10-29 05:30] LABS: Calcium 8.6 MG/DL (8.5-10.1); Osmolality,Calculated 294.8 MOS/KG (273-304); Potassium 3.8 MMOL/L (3.5-5.1)
[2021-10-29] MEDS: SODIUM BICARB INJ 50 MEQ in DEXTROSE 5% NACL 0.45% 1,000 ML IV SCH ×3 (06:12→19:36)
[2021-10-29] MEDS: SODIUM CHLORIDE 0.9% 500 ML IV SCH (07:15)
[2021-10-29] MEDS ORDERED: LIDOCAINE 2% 5 ML VIAL ONE (08:08)
[2021-10-29] MEDS ORDERED: propofoL 200 MG/20 ML VIAL IV ONE ×2 (08:08→08:55)
[2021-10-29] MEDS ORDERED: ETOMIDATE 20 MG/10 ML VIAL IV ONE (08:08)
[2021-10-29] MEDS ORDERED: hydrALAZINE 20 MG/1 ML VIAL ONE (08:29)
[2021-10-29] MEDS ORDERED: SODIUM CHLORIDE 0.9% 250 ML IV ONE (08:34)
[2021-10-29] MEDS: METOCLOPRAMIDE 10 MG TABLET PO SCH ×2 (11:09→16:49)
[2021-10-29] MEDS: BRIMONIDINE/TIMOLOL OPH SOLN 5 ML BOTTLE BOTH EYES SCH ×2 (11:09→21:39)
[2021-10-29] MEDS: SEVELAMER CARBONATE 800 MG TABLET PO SCH ×3 (11:09→16:49)
[2021-10-29] MEDS: SODIUM ZIRCONIUM CYCLOSILICATE 10 GM PACK PO SCH (11:09)
[2021-10-29] MEDS: PANTOPRAZOLE 40 MG VIAL IV SCH ×2 (11:25→21:40)
[2021-10-29] MEDS: ERTAPENEM 500 MG in SODIUM CHLORIDE 0.9% 100 ML IV SCH (11:30)
[2021-10-29] MEDS: MYCOPHENOLATE MOFETIL 250 MG CAPSULE PO SCH ×2 (11:41→21:39)
[2021-10-29] MEDS: DOCUSATE SODIUM 100 MG CAPSULE PO SCH ×2 (11:41→21:13)
[2021-10-29] MEDS: DULoxetine 30 MG CAPSULE PO SCH ×2 (11:41→21:39)
[2021-10-29] MEDS: HYDROXYCHLOROQUINE 200 MG TABLET PO SCH ×2 (11:41→21:39)
[2021-10-29] MEDS: amLODIPine 10 MG TABLET PO SCH (11:41)
[2021-10-29] MEDS: busPIRone 5 MG TABLET PO SCH ×2 (11:42→21:38)
[2021-10-29] MEDS: ASPIRIN CHEW 81 MG TABLET PO SCH (11:42)
[2021-10-29] MEDS: hydrALAZINE 20 MG/1 ML VIAL IV PRN (16:34)
[2021-10-29] MEDS: ZINC/COPPER/MANGANESE/SELENIUM 1 ML, MULTIVITAMIN INJ 10 ML in AMINO ACIDS/DEXT/LYTES 4... IV SCH (16:50)
[2021-10-29] MEDS: NEBIVOLOL 10 MG TABLET PO SCH (21:38)
[2021-10-29] MEDS: TRAVOPROST 0.004% OPH SOLN 2.5 ML BOTTLE BOTH EYES SCH (21:39)
[2021-10-30] MEDS: methylPREDNISolone SOD SUC 40 MG/1 ML VIAL IV SCH ×2 (03:36→16:24)
[2021-10-30] MEDS: hydrALAZINE 20 MG/1 ML VIAL IV PRN (04:35)
[2021-10-30] MEDS: SODIUM CHLORIDE 0.9% 500 ML IV SCH (06:34)
[2021-10-30 06:55] LABS: Calcium 7.9 MG/DL (8.5-10.1); Osmolality,Calculated 295.5 MOS/KG (273-304); Potassium 3.8 MMOL/L (3.5-5.1)
[2021-10-30] MEDS: PANTOPRAZOLE 40 MG VIAL IV SCH ×2 (08:14→21:13)
[2021-10-30] MEDS: MYCOPHENOLATE MOFETIL 250 MG CAPSULE PO SCH ×2 (08:16→21:04)
[2021-10-30] MEDS: DOCUSATE SODIUM 100 MG CAPSULE PO SCH ×2 (08:16→22:58)
[2021-10-30] MEDS: HYDROXYCHLOROQUINE 200 MG TABLET PO SCH ×2 (08:16→21:04)
[2021-10-30] MEDS: amLODIPine 10 MG TABLET PO SCH (08:17)
[2021-10-30] MEDS: SEVELAMER CARBONATE 800 MG TABLET PO SCH ×3 (08:17→16:25)
[2021-10-30] MEDS: busPIRone 5 MG TABLET PO SCH ×2 (08:17→21:04)
[2021-10-30] MEDS: DULoxetine 30 MG CAPSULE PO SCH ×2 (08:17→21:03)
[2021-10-30] MEDS: METOCLOPRAMIDE 10 MG TABLET PO SCH ×2 (08:17→16:25)
[2021-10-30] MEDS: SODIUM ZIRCONIUM CYCLOSILICATE 10 GM PACK PO SCH (08:17)
[2021-10-30] MEDS: ASPIRIN CHEW 81 MG TABLET PO SCH (08:17)
[2021-10-30] MEDS: BRIMONIDINE/TIMOLOL OPH SOLN 5 ML BOTTLE BOTH EYES SCH ×2 (08:20→21:04)
[2021-10-30] MEDS: PROMETHAZINE INJ 25 MG in SODIUM CHLORIDE 0.9% 50 ML IV SCH ×4 (08:30→21:03)
[2021-10-30] MEDS: SODIUM BICARB INJ 50 MEQ in DEXTROSE 5% NACL 0.45% 1,000 ML IV SCH (10:30)
[2021-10-30] MEDS: ERTAPENEM 500 MG in SODIUM CHLORIDE 0.9% 100 ML IV SCH (11:40)
[2021-10-30] MEDS: ZINC/COPPER/MANGANESE/SELENIUM 1 ML, MULTIVITAMIN INJ 10 ML in AMINO ACIDS/DEXT/LYTES 4... IV SCH (16:26)
[2021-10-30] MEDS: cloNIDine 0.1 MG TABLET PO SCH (21:03)
[2021-10-30] MEDS: TRAVOPROST 0.004% OPH SOLN 2.5 ML BOTTLE BOTH EYES SCH (21:04)
[2021-10-30] MEDS: NEBIVOLOL 10 MG TABLET PO SCH (21:04)
[2021-10-31] MEDS: methylPREDNISolone SOD SUC 40 MG/1 ML VIAL IV SCH ×2 (02:51→14:56)
[2021-10-31] MEDS: SODIUM BICARB INJ 50 MEQ in DEXTROSE 5% NACL 0.45% 1,000 ML IV SCH ×2 (03:14→05:44)
[2021-10-31] MEDS: hydrALAZINE 20 MG/1 ML VIAL IV PRN (04:20)
[2021-10-31 06:07] LABS: Basophils % 0.1 % (0.0-0.8); Eosinophils # 0.3 10*3/uL (0.0-0.87); Eosinophils % 2.6 % (0.00-10.9); Hematocrit 30.3 VOL% (35.7-47.0); Hemoglobin 9.9 GM/DL (12.0-16.0); Immature Granulocytes Absolute 0.11 #; Lymphocytes # 1.1 10*3/uL (1.4-4.0); Lymphocytes % 10.1 % (21.3-54.2); Mean Corpuscular HGB Conc 32.7 GM/DL (32-36); Mean Corpuscular Volume 90.2 FL (87-102); Mean Platelet Volume 9.9 FL (9.6-12.0); Monocytes % 8.5 % (1.7-12.7); Neutrophils % 77.7 % (38.7-73.9); Platelet Count 132 T/CUMM (130-400); Red Blood Count 3.36 MC/CUMM (3.8-5.5); Red Cell Distribution Width 16.1 % (9.3-17.3); White Blood Count 11.2 T/CUMM (4-12)
[2021-10-31] MEDS: SODIUM CHLORIDE 0.9% 500 ML IV SCH (06:17)
[2021-10-31 06:29] LABS: Alanine Aminotransferase 10 U/L (13-56); Albumin 2.2 G/DL (3.4-5.0); Alkaline Phosphatase 43 U/L (45-117); Aspartate Amino Transferase 11 U/L (0-37); Bilirubin,Total < 0.39 MG/DL (0.20-1.00); Blood Urea Nitrogen 73 MG/DL (7-18); Calcium 8.1 MG/DL (8.5-10.1); Carbon Dioxide 18 MMOL/L (21-32); Chloride 112 MMOL/L (98-107); Glucose 114 MG/DL (74-106); Osmolality,Calculated 297.7 MOS/KG (273-304); Potassium 4.1 MMOL/L (3.5-5.1); Sodium 138 MMOL/L (136-145); Total Protein 5.8 G/DL (6.4-8.2)
[2021-10-31] MEDS: amLODIPine 10 MG TABLET PO SCH (08:35)
[2021-10-31] MEDS: MYCOPHENOLATE MOFETIL 250 MG CAPSULE PO SCH (08:35)
[2021-10-31] MEDS: busPIRone 5 MG TABLET PO SCH (08:35)
[2021-10-31] MEDS: METOCLOPRAMIDE 10 MG TABLET PO SCH ×2 (08:35→16:55)
[2021-10-31] MEDS: DOCUSATE SODIUM 100 MG CAPSULE PO SCH (08:36)
[2021-10-31] MEDS: ASPIRIN CHEW 81 MG TABLET PO SCH (08:36)
[2021-10-31] MEDS: SEVELAMER CARBONATE 800 MG TABLET PO SCH ×3 (08:36→16:56)
[2021-10-31] MEDS: HYDROXYCHLOROQUINE 200 MG TABLET PO SCH (08:36)
[2021-10-31] MEDS: cloNIDine 0.1 MG TABLET PO SCH ×2 (08:36→14:54)
[2021-10-31] MEDS: SODIUM ZIRCONIUM CYCLOSILICATE 10 GM PACK PO SCH (08:37)
[2021-10-31] MEDS: DULoxetine 30 MG CAPSULE PO SCH (08:37)
[2021-10-31] MEDS: BRIMONIDINE/TIMOLOL OPH SOLN 5 ML BOTTLE BOTH EYES SCH (08:37)
[2021-10-31] MEDS: PANTOPRAZOLE 40 MG VIAL IV SCH ×2 (08:37→21:00)
[2021-10-31] MEDS: MENTHOL/ZINC OXIDE OINT 71 GM JAR TOP SCH (11:42)
[2021-10-31] MEDS: ERTAPENEM 500 MG in SODIUM CHLORIDE 0.9% 100 ML IV SCH (11:42)
[2021-10-31] MEDS: ZINC/COPPER/MANGANESE/SELENIUM 1 ML, MULTIVITAMIN INJ 10 ML in AMINO ACIDS/DEXT/LYTES 4... IV SCH (17:00)
[2021-10-31] MEDS: ACETAMINOPHEN 325 MG TABLET PO PRN (22:17)
[2021-11-01] MEDS: MYCOPHENOLATE MOFETIL 250 MG CAPSULE PO SCH ×3 (00:01→21:53)
[2021-11-01] MEDS: MENTHOL/ZINC OXIDE OINT 71 GM JAR TOP SCH ×3 (00:01→22:04)
[2021-11-01] MEDS: busPIRone 5 MG TABLET PO SCH ×3 (00:01→21:53)
[2021-11-01] MEDS: cloNIDine 0.1 MG TABLET PO SCH ×4 (00:01→23:38)
[2021-11-01] MEDS: DOCUSATE SODIUM 100 MG CAPSULE PO SCH ×3 (00:01→22:02)
[2021-11-01] MEDS: NEBIVOLOL 10 MG TABLET PO SCH ×2 (00:01→21:55)
[2021-11-01] MEDS: BRIMONIDINE/TIMOLOL OPH SOLN 5 ML BOTTLE BOTH EYES SCH ×3 (00:01→21:56)
[2021-11-01] MEDS: TRAVOPROST 0.004% OPH SOLN 2.5 ML BOTTLE BOTH EYES SCH ×2 (00:08→21:56)
[2021-11-01] MEDS: HYDROXYCHLOROQUINE 200 MG TABLET PO SCH ×3 (00:14→21:54)
[2021-11-01] MEDS: DULoxetine 30 MG CAPSULE PO SCH ×3 (00:14→21:53)
[2021-11-01] MEDS: SODIUM BICARB INJ 50 MEQ in DEXTROSE 5% NACL 0.45% 1,000 ML IV SCH ×2 (05:00→15:05)
[2021-11-01] MEDS: methylPREDNISolone SOD SUC 40 MG/1 ML VIAL IV SCH ×2 (05:00→15:28)
[2021-11-01 06:49] LABS: Basophils % 0.2 % (0.0-0.8); Eosinophils # 0.6 10*3/uL (0.0-0.87); Eosinophils % 4.4 % (0.00-10.9); Hematocrit 29.2 VOL% (35.7-47.0); Hemoglobin 9.1 GM/DL (12.0-16.0); Immature Granulocytes % 0.8 %; Lymphocytes # 2.1 10*3/uL (1.4-4.0); Lymphocytes % 16.3 % (21.3-54.2); Mean Corpuscular HGB Conc 31.2 GM/DL (32-36); Monocytes # 1.3 10*3/uL (0.11-0.8); Monocytes % 10.6 % (1.7-12.7); Neutrophils % 67.7 % (38.7-73.9); Platelet Count 132 T/CUMM (130-400); Red Blood Count 3.21 MC/CUMM (3.8-5.5); Red Cell Distribution Width 16.3 % (9.3-17.3); White Blood Count 12.6 T/CUMM (4-12)
[2021-11-01 07:10] LABS: Calcium 7.7 MG/DL (8.5-10.1); Osmolality,Calculated 301.4 MOS/KG (273-304); Potassium 4.1 MMOL/L (3.5-5.1)
[2021-11-01] MEDS: SODIUM ZIRCONIUM CYCLOSILICATE 10 GM PACK PO SCH (08:12)
[2021-11-01] MEDS: ASPIRIN CHEW 81 MG TABLET PO SCH (08:13)
[2021-11-01] MEDS: METOCLOPRAMIDE 10 MG TABLET PO SCH ×2 (08:13→16:58)
[2021-11-01] MEDS: SEVELAMER CARBONATE 800 MG TABLET PO SCH ×3 (08:14→16:58)
[2021-11-01] MEDS: PANTOPRAZOLE 40 MG VIAL IV SCH ×2 (08:18→21:52)
[2021-11-01] MEDS: SODIUM CHLORIDE 0.9% 500 ML IV SCH (11:07)
[2021-11-01] MEDS: ERTAPENEM 500 MG in SODIUM CHLORIDE 0.9% 100 ML IV SCH (11:21)
[2021-11-01] MEDS: ZINC/COPPER/MANGANESE/SELENIUM 1 ML, MULTIVITAMIN INJ 10 ML in AMINO ACIDS/DEXT/LYTES 4... IV SCH (16:57)
[2021-11-02] MEDS: methylPREDNISolone SOD SUC 40 MG/1 ML VIAL IV SCH ×2 (03:06→17:00)
[2021-11-02 06:07] LABS: Basophils % 0.1 % (0.0-0.8); Eosinophils # 0.3 10*3/uL (0.0-0.87); Eosinophils % 2.5 % (0.00-10.9); Hemoglobin 9.1 GM/DL (12.0-16.0); Immature Granulocytes % 1.1 %; Immature Granulocytes Absolute 0.13 #; Lymphocytes # 0.9 10*3/uL (1.4-4.0); Lymphocytes % 7.2 % (21.3-54.2); Mean Corpuscular HGB Conc 31.4 GM/DL (32-36); Mean Corpuscular Volume 90.9 FL (87-102); Mean Platelet Volume 10.3 FL (9.6-12.0); Monocytes # 0.7 10*3/uL (0.11-0.8); Monocytes % 6.1 % (1.7-12.7); Platelet Count 141 T/CUMM (130-400); Red Blood Count 3.19 MC/CUMM (3.8-5.5); Red Cell Distribution Width 16.2 % (9.3-17.3); White Blood Count 12.2 T/CUMM (4-12)
[2021-11-02 06:28] LABS: Calcium 7.9 MG/DL (8.5-10.1); Osmolality,Calculated 297.8 MOS/KG (273-304); Potassium 4.4 MMOL/L (3.5-5.1)
[2021-11-02] MEDS: SEVELAMER CARBONATE 800 MG TABLET PO SCH ×3 (08:53→17:00)
[2021-11-02] MEDS: busPIRone 5 MG TABLET PO SCH ×2 (08:53→20:32)
[2021-11-02] MEDS: cloNIDine 0.1 MG TABLET PO SCH ×3 (08:53→20:32)
[2021-11-02] MEDS: METOCLOPRAMIDE 10 MG TABLET PO SCH ×2 (08:53→17:00)
[2021-11-02] MEDS: HYDROXYCHLOROQUINE 200 MG TABLET PO SCH ×2 (08:53→20:32)
[2021-11-02] MEDS: ASPIRIN CHEW 81 MG TABLET PO SCH (08:53)
[2021-11-02] MEDS: MYCOPHENOLATE MOFETIL 250 MG CAPSULE PO SCH ×2 (08:53→20:32)
[2021-11-02] MEDS: DULoxetine 30 MG CAPSULE PO SCH ×2 (08:53→20:32)
[2021-11-02] MEDS: DOCUSATE SODIUM 100 MG CAPSULE PO SCH ×2 (08:53→20:32)
[2021-11-02] MEDS: MENTHOL/ZINC OXIDE OINT 71 GM JAR TOP SCH ×2 (08:54→20:33)
[2021-11-02] MEDS: PANTOPRAZOLE 40 MG VIAL IV SCH ×2 (08:54→20:33)
[2021-11-02] MEDS: SODIUM ZIRCONIUM CYCLOSILICATE 10 GM PACK PO SCH (08:54)
[2021-11-02] MEDS: BRIMONIDINE/TIMOLOL OPH SOLN 5 ML BOTTLE BOTH EYES SCH ×2 (08:54→20:33)
[2021-11-02] MEDS: SODIUM BICARB INJ 50 MEQ in DEXTROSE 5% NACL 0.45% 1,000 ML IV SCH (08:58)
[2021-11-02] MEDS: ERTAPENEM 500 MG in SODIUM CHLORIDE 0.9% 100 ML IV SCH (12:03)
[2021-11-02] MEDS: DEXTROMETHORPHAN ER 6 MG/ML 90 ML/BOTTLE PO PRN (13:33)
[2021-11-02] MEDS: ZINC/COPPER/MANGANESE/SELENIUM 1 ML, MULTIVITAMIN INJ 10 ML in AMINO ACIDS/DEXT/LYTES 4... IV SCH (17:00)
[2021-11-02] MEDS: NEBIVOLOL 10 MG TABLET PO SCH (20:32)
[2021-11-02] MEDS: TRAVOPROST 0.004% OPH SOLN 2.5 ML BOTTLE BOTH EYES SCH (20:33)
[2021-11-03] MEDS: methylPREDNISolone SOD SUC 40 MG/1 ML VIAL IV SCH ×2 (03:27→16:09)
[2021-11-03] MEDS: SODIUM BICARB INJ 50 MEQ in DEXTROSE 5% NACL 0.45% 1,000 ML IV SCH ×2 (03:27→22:57)
[2021-11-03 06:07] LABS: Calcium 8.1 MG/DL (8.5-10.1); Osmolality,Calculated 302.5 MOS/KG (273-304); Potassium 4.4 MMOL/L (3.5-5.1)
[2021-11-03] MEDS: DOCUSATE SODIUM 100 MG CAPSULE PO SCH ×2 (09:03→22:39)
[2021-11-03] MEDS: MYCOPHENOLATE MOFETIL 250 MG CAPSULE PO SCH ×2 (09:03→21:27)
[2021-11-03] MEDS: METOCLOPRAMIDE 10 MG TABLET PO SCH ×2 (09:04→17:15)
[2021-11-03] MEDS: HYDROXYCHLOROQUINE 200 MG TABLET PO SCH ×2 (09:04→21:27)
[2021-11-03] MEDS: cloNIDine 0.1 MG TABLET PO SCH ×3 (09:04→21:26)
[2021-11-03] MEDS: SEVELAMER CARBONATE 800 MG TABLET PO SCH ×3 (09:04→17:15)
[2021-11-03] MEDS: busPIRone 5 MG TABLET PO SCH ×2 (09:04→21:27)
[2021-11-03] MEDS: DULoxetine 30 MG CAPSULE PO SCH ×2 (09:04→21:27)
[2021-11-03] MEDS: ASPIRIN CHEW 81 MG TABLET PO SCH (09:04)
[2021-11-03] MEDS: SODIUM ZIRCONIUM CYCLOSILICATE 10 GM PACK PO SCH (09:04)
[2021-11-03] MEDS: PANTOPRAZOLE 40 MG VIAL IV SCH ×2 (09:05→21:26)
[2021-11-03] MEDS: MENTHOL/ZINC OXIDE OINT 71 GM JAR TOP SCH ×2 (09:09→21:27)
[2021-11-03] MEDS: BRIMONIDINE/TIMOLOL OPH SOLN 5 ML BOTTLE BOTH EYES SCH ×2 (09:09→21:27)
[2021-11-03] MEDS: ERTAPENEM 500 MG in SODIUM CHLORIDE 0.9% 100 ML IV SCH (11:58)
[2021-11-03] MEDS: ZINC/COPPER/MANGANESE/SELENIUM 1 ML, MULTIVITAMIN INJ 10 ML in AMINO ACIDS/DEXT/LYTES 4... IV SCH (17:07)
[2021-11-03] MEDS: NEBIVOLOL 10 MG TABLET PO SCH (21:26)
[2021-11-03] MEDS: TRAVOPROST 0.004% OPH SOLN 2.5 ML BOTTLE BOTH EYES SCH (21:27)
[2021-11-03] MEDS: DEXTROMETHORPHAN ER 6 MG/ML 90 ML/BOTTLE PO PRN (22:36)
[2021-11-04] MEDS: methylPREDNISolone SOD SUC 40 MG/1 ML VIAL IV SCH ×2 (02:00→16:39)
[2021-11-04] MEDS: SODIUM BICARB INJ 50 MEQ in DEXTROSE 5% NACL 0.45% 1,000 ML IV SCH (02:01)
[2021-11-04 06:34] LABS: Basophils % 0.2 % (0.0-0.8); Eosinophils # 0.2 10*3/uL (0.0-0.87); Eosinophils % 1.6 % (0.00-10.9); Hemoglobin 9.3 GM/DL (12.0-16.0); Immature Granulocytes % 1.1 %; Immature Granulocytes Absolute 0.12 #; Lymphocytes # 0.9 10*3/uL (1.4-4.0); Lymphocytes % 8.3 % (21.3-54.2); Mean Corpuscular HGB Conc 32.1 GM/DL (32-36); Mean Corpuscular Volume 90.3 FL (87-102); Mean Platelet Volume 10.4 FL (9.6-12.0); Monocytes # 0.8 10*3/uL (0.11-0.8); Monocytes % 6.7 % (1.7-12.7); Neutrophils % 82.1 % (38.7-73.9); Platelet Count 179 T/CUMM (130-400); Red Blood Count 3.21 MC/CUMM (3.8-5.5); Red Cell Distribution Width 16.2 % (9.3-17.3); White Blood Count 11.1 T/CUMM (4-12)
[2021-11-04 07:01] LABS: Calcium 8.1 MG/DL (8.5-10.1); Osmolality,Calculated 301.5 MOS/KG (273-304); Potassium 4.3 MMOL/L (3.5-5.1)
[2021-11-04] MEDS: PANTOPRAZOLE 40 MG VIAL IV SCH (10:31)
[2021-11-04] MEDS: SODIUM ZIRCONIUM CYCLOSILICATE 10 GM PACK PO SCH (10:31)
[2021-11-04] MEDS: METOCLOPRAMIDE 10 MG TABLET PO SCH ×2 (10:32→16:39)
[2021-11-04] MEDS: cloNIDine 0.1 MG TABLET PO SCH ×2 (10:32→16:39)
[2021-11-04] MEDS: DULoxetine 30 MG CAPSULE PO SCH (10:32)
[2021-11-04] MEDS: MYCOPHENOLATE MOFETIL 250 MG CAPSULE PO SCH (10:32)
[2021-11-04] MEDS: ASPIRIN CHEW 81 MG TABLET PO SCH (10:32)
[2021-11-04] MEDS: HYDROXYCHLOROQUINE 200 MG TABLET PO SCH (10:33)
[2021-11-04] MEDS: busPIRone 5 MG TABLET PO SCH (10:33)
[2021-11-04] MEDS: BRIMONIDINE/TIMOLOL OPH SOLN 5 ML BOTTLE BOTH EYES SCH (10:33)
[2021-11-04] MEDS: MENTHOL/ZINC OXIDE OINT 71 GM JAR TOP SCH (10:33)
[2021-11-04] MEDS: SEVELAMER CARBONATE 800 MG TABLET PO SCH ×3 (10:33→16:39)
[2021-11-04] MEDS: DOCUSATE SODIUM 100 MG CAPSULE PO SCH (10:33)
[2021-11-04] MEDS: ERTAPENEM 500 MG in SODIUM CHLORIDE 0.9% 100 ML IV SCH (12:12)
[2021-11-04] MEDS: DEXTROMETHORPHAN ER 6 MG/ML 90 ML/BOTTLE PO PRN (13:06)
[2021-11-04 16:22] VITALS: BP 132/70
== END 2021-11-04 18:05 | disposition home health service (06) | DRG 391 ==
LOC: EDBD → EDUNIT# → N.ED 17:54 → N.3E 21:53
PROVIDERS: ADMIT Internal Medicine; ATTEND Internal Medicine

== ENCOUNTER 2022-01-02 13:00 | Inpatient (IN) ==
[2022-01-02] MEDS ORDERED: ALBUTEROL/IPRATROPIUM 3 ML NEB RESP TX STA (13:20)
[2022-01-02] MEDS ORDERED: SODIUM CHLORIDE 0.9% 1,000 ML IV STA (13:20)
[2022-01-02] MEDS ORDERED: PIPERACILLIN/TAZOBACTAM 3,375 MG in SODIUM CHLORIDE 0.9% 100 ML IV STA (13:20)
[2022-01-02 13:30] LABS: Basophils % 0.3 % (0.0-0.8); Eosinophils # 0.2 10*3/uL (0.0-0.87); Eosinophils % 1.1 % (0.00-10.9); Hemoglobin 7.1 GM/DL (12.0-16.0); Immature Granulocytes % 1.4 %; Immature Granulocytes Absolute 0.21 #; Lymphocytes # 1.5 10*3/uL (1.4-4.0); Lymphocytes % 9.8 % (21.3-54.2); Mean Corpuscular HGB Conc 29.6 GM/DL (32-36); Mean Platelet Volume 11.5 FL (9.6-12.0); Monocytes # 1.8 10*3/uL (0.11-0.8); Monocytes % 11.8 % (1.7-12.7); Neutrophils % 75.6 % (38.7-73.9); Platelet Count 457 T/CUMM (130-400); Red Blood Count 2.45 MC/CUMM (3.8-5.5); Red Cell Distribution Width 16.2 % (9.3-17.3); White Blood Count 15.5 T/CUMM (4-12)
[2022-01-02] MEDS ORDERED: SODIUM CHLORIDE 0.9% 500 ML IV STA (13:33)
[2022-01-02 13:48] LABS: Albumin 3.1 G/DL (3.4-5.0); Bilirubin,Total 0.5 MG/DL (0.20-1.00); Calcium 9.1 MG/DL (8.5-10.1); Potassium 5.3 MMOL/L (3.5-5.1)
[2022-01-02 14:00] LABS: ABG Base Excess -8.9 MMOL/L (-2.5-2.5); ABG HCO3 17.2 MMOL/L (20-26); ABG Oxygen Saturation 93.2 % (95-100); ABG PCO2 31.9 MM HG (35-48); ABG PH 7.319 (7.35-7.45); ABG PO2 76.8 MM HG (80-95); ABG TCO2 15.4 MMOL/L (23-27)
[2022-01-02 14:21] LABS: Urine Appearance Clear (Clear); Urine Color Yellow (Yellow)
[2022-01-02 14:22] LABS: Bilirubin,Urine Negative (Negative); Blood, Urine Negative (Negative); Glucose,Urine (UA) Negative (Negative); Ketones,Urine Negative (Negative); Nitrite,Urine Negative (Negative); Protein,Urine >=300 mg/dL (Negative); Urine Urobilinogen 0.2 eU/dL (<2.0); Urine pH 8.5 (4.5-8.0)
[2022-01-02 14:24] LABS: Amorphous Crystals,Urine Occasional /HPF (Few)
[2022-01-02] MEDS ORDERED: SODIUM CHLORIDE 0.9% 1,000 ML IV PRN (15:21)
[2022-01-02] MEDS ORDERED: NALOXONE 0.4 MG/ML VIAL IV PRN (15:31)
[2022-01-02] MEDS ORDERED: SODIUM CHLORIDE 0.9% 500 ML IV PRN (15:34)
[2022-01-02 16:20] LABS: Band Neutrophils 1 % (0-10); Lymphocytes 7 % (20-55); Total Cells Counted 100
[2022-01-02 16:21] LABS: Polychromasia Slight
[2022-01-02 16:22] LABS: Burr Cells Few; Elliptocytes Few; Platelet Estimate Increased; Tear Drop Cells Slight
[2022-01-02] MEDS ORDERED: PIPERACILLIN/TAZOBACTAM 3,375 MG in SODIUM CHLORIDE 0.9% 100 ML IV SCH (21:30)
[2022-01-02] MEDS: DOCUSATE SODIUM 100 MG CAPSULE PO SCH (21:45)
[2022-01-02] MEDS: ENOXAPARIN 30 MG/0.3 ML SYRINGE SUBCUT SCH (21:45)
[2022-01-02] MEDS: MORPHINE 2 MG/1 ML SYRINGE IV PRN (21:45)
[2022-01-02] MEDS ORDERED: FUROSEMIDE 20 MG/2 ML VIAL IV ONE (21:45)
[2022-01-02] MEDS: ONDANSETRON 4 MG/2 ML VIAL IV PRN (21:55)
[2022-01-02] MEDS ORDERED: ALBUTEROL/IPRATROPIUM 3 ML NEB RESP TX ONE (23:56)
[2022-01-03] MEDS: ALBUTEROL/IPRATROPIUM 3 ML NEB RESP TX SCH ×4 (00:50→19:17)
[2022-01-03] MEDS: methylPREDNISolone SOD SUC 40 MG/1 ML VIAL IV SCH ×3 (00:59→15:28)
[2022-01-03] MEDS ORDERED: FUROSEMIDE 20 MG/2 ML VIAL IV ONE (06:00)
[2022-01-03 07:45] LABS: Basophils % 0.1 % (0.0-0.8); Hematocrit 29.9 VOL% (35.7-47.0); Hemoglobin 9.7 GM/DL (12.0-16.0); Immature Granulocytes % 1.2 %; Lymphocytes # 0.5 10*3/uL (1.4-4.0); Lymphocytes % 6.1 % (21.3-54.2); Mean Corpuscular HGB Conc 32.4 GM/DL (32-36); Mean Corpuscular Volume 89.3 FL (87-102); Mean Platelet Volume 11.5 FL (9.6-12.0); Monocytes # 0.2 10*3/uL (0.11-0.8); Monocytes % 2.6 % (1.7-12.7); Platelet Count 321 T/CUMM (130-400); Red Blood Count 3.35 MC/CUMM (3.8-5.5); Red Cell Distribution Width 16.1 % (9.3-17.3); White Blood Count 8.6 T/CUMM (4-12)
[2022-01-03 08:00] LABS: Albumin 2.9 G/DL (3.4-5.0); Bilirubin,Total 0.4 MG/DL (0.20-1.00); Calcium 8.9 MG/DL (8.5-10.1); Total Protein 7.3 G/DL (6.4-8.2); Uric Acid 10.8 MG/DL (2.6-6.0)
[2022-01-03] MEDS ORDERED: METOCLOPRAMIDE 10 MG TABLET PO SCH (08:00)
[2022-01-03] MEDS: INSULIN REGULAR 100 UNIT/ML SUBCUT SCH ×3 (08:02→16:03)
[2022-01-03] MEDS ORDERED: cloNIDine 0.1 MG TABLET PO SCH (09:00)
[2022-01-03] MEDS ORDERED: FERROUS SULFATE 325 MG TABLET PO SCH (09:00)
[2022-01-03] MEDS ORDERED: NON-FORMULARY MEDICATION (Docusate Sodium Cap [Colace Cap] 100 MG) PO SCH (09:00)
[2022-01-03] MEDS ORDERED: BRIMONIDINE/TIMOLOL OPH SOLN 5 ML BOTTLE BOTH EYES SCH (09:00)
[2022-01-03] MEDS ORDERED: PANTOPRAZOLE 40 MG TABLET PO SCH (09:00)
[2022-01-03] MEDS ORDERED: DULoxetine 30 MG CAPSULE PO SCH (09:00)
[2022-01-03] MEDS ORDERED: SODIUM ZIRCONIUM CYCLOSILICATE 10 GM PACK PO SCH (09:00)
[2022-01-03] MEDS ORDERED: busPIRone 5 MG TABLET PO SCH (09:00)
[2022-01-03] MEDS ORDERED: ASPIRIN CHEW 81 MG TABLET PO SCH (09:00)
[2022-01-03] MEDS: PIPERACILLIN/TAZOBACTAM 3,375 MG in SODIUM CHLORIDE 0.9% 100 ML IV SCH (09:10)
[2022-01-03] MEDS: DOCUSATE SODIUM 100 MG CAPSULE PO SCH ×2 (09:18→20:20)
[2022-01-03] MEDS: MORPHINE 2 MG/1 ML SYRINGE IV PRN ×2 (12:50→20:19)
[2022-01-03] MEDS ORDERED: MAGNESIUM SULF RIDER 1 GM/100 ML PREMIX IV ONE (13:21)
[2022-01-03] MEDS ORDERED: MAGNESIUM SULF RIDER 2 GM/50 ML PREMIX IV ONE (14:06)
[2022-01-03] MEDS: allopurinoL 100 MG TABLET PO SCH (15:25)
[2022-01-03] MEDS: FAMOTIDINE 20 MG TABLET PO SCH (16:06)
[2022-01-03] MEDS: BENZONATATE 100 MG CAPSULE PO SCH ×2 (16:06→20:20)
[2022-01-03] MEDS: ENOXAPARIN 30 MG/0.3 ML SYRINGE SUBCUT SCH (20:20)
[2022-01-03] MEDS ORDERED: ATORVASTATIN 40 MG TABLET PO SCH (21:00)
[2022-01-03] MEDS ORDERED: TRAVOPROST 0.004% OPH SOLN 2.5 ML BOTTLE BOTH EYES SCH (21:00)
[2022-01-04] MEDS: INSULIN REGULAR 100 UNIT/ML SUBCUT SCH ×5 (00:04→20:01)
[2022-01-04] MEDS: methylPREDNISolone SOD SUC 40 MG/1 ML VIAL IV SCH ×3 (00:17→15:51)
[2022-01-04] MEDS: ALBUTEROL/IPRATROPIUM 3 ML NEB RESP TX SCH ×4 (00:31→19:25)
[2022-01-04] MEDS: PIPERACILLIN/TAZOBACTAM 3,375 MG in SODIUM CHLORIDE 0.9% 100 ML IV SCH ×3 (00:38→20:38)
[2022-01-04 06:04] LABS: Basophils % 0.3 % (0.0-0.8); Hematocrit 30.9 VOL% (35.7-47.0); Hemoglobin 9.6 GM/DL (12.0-16.0); Immature Granulocytes % 2.8 %; Immature Granulocytes Absolute 0.19 #; Lymphocytes # 0.5 10*3/uL (1.4-4.0); Lymphocytes % 7.2 % (21.3-54.2); Mean Corpuscular HGB Conc 31.1 GM/DL (32-36); Mean Corpuscular Volume 92.8 FL (87-102); Mean Platelet Volume 11.9 FL (9.6-12.0); Monocytes # 0.4 10*3/uL (0.11-0.8); Monocytes % 5.9 % (1.7-12.7); Neutrophils % 83.8 % (38.7-73.9); Platelet Count 300 T/CUMM (130-400); Red Blood Count 3.33 MC/CUMM (3.8-5.5); White Blood Count 6.8 T/CUMM (4-12)
[2022-01-04 06:23] LABS: Calcium 8.8 MG/DL (8.5-10.1); Osmolality,Calculated 295.1 MOS/KG (273-304); Phosphorous 4.6 MG/DL (2.5-4.9); Potassium 4.7 MMOL/L (3.5-5.1)
[2022-01-04] MEDS: SEVELAMER CARBONATE 800 MG TABLET PO SCH ×2 (07:12→07:13)
[2022-01-04] MEDS ORDERED: MYCOPHENOLATE MOFETIL 250 MG CAPSULE PO SCH (09:00)
[2022-01-04] MEDS: ASPIRIN CHEW 81 MG TABLET PO SCH (09:16)
[2022-01-04] MEDS: cloNIDine 0.1 MG TABLET PO SCH ×3 (09:16→20:39)
[2022-01-04] MEDS: DOCUSATE SODIUM 100 MG CAPSULE PO SCH ×2 (09:17→20:40)
[2022-01-04] MEDS: FAMOTIDINE 20 MG TABLET PO SCH (09:17)
[2022-01-04] MEDS: allopurinoL 100 MG TABLET PO SCH (09:17)
[2022-01-04] MEDS: busPIRone 5 MG TABLET PO SCH ×2 (09:17→20:39)
[2022-01-04] MEDS: FERROUS SULFATE 325 MG TABLET PO SCH (09:17)
[2022-01-04] MEDS: MYCOPHENOLATE MOFETIL 250 MG CAPSULE PO SCH ×2 (09:17→20:39)
[2022-01-04] MEDS: BENZONATATE 100 MG CAPSULE PO SCH ×3 (09:17→20:39)
[2022-01-04] MEDS: ONDANSETRON 4 MG/2 ML VIAL IV PRN (09:18)
[2022-01-04] MEDS: BRIMONIDINE/TIMOLOL OPH SOLN 5 ML BOTTLE BOTH EYES SCH ×2 (10:12→20:38)
[2022-01-04] MEDS: MORPHINE 2 MG/1 ML SYRINGE IV PRN ×2 (17:09→20:38)
[2022-01-04] MEDS ORDERED: ALUMINUM/MAGNES/SIMETH MAX STR 30 ML UDCUP PO PRN (19:55)
[2022-01-04] MEDS: TRAVOPROST 0.004% OPH SOLN 2.5 ML BOTTLE BOTH EYES SCH (20:38)
[2022-01-04] MEDS: ENOXAPARIN 30 MG/0.3 ML SYRINGE SUBCUT SCH (20:39)
[2022-01-05] MEDS: ALBUTEROL/IPRATROPIUM 3 ML NEB RESP TX SCH ×4 (00:25→19:33)
[2022-01-05] MEDS: methylPREDNISolone SOD SUC 40 MG/1 ML VIAL IV SCH ×3 (00:56→15:40)
[2022-01-05 05:02] LABS: Basophils % 0.1 % (0.0-0.8); Hematocrit 27.3 VOL% (35.7-47.0); Hemoglobin 8.4 GM/DL (12.0-16.0); Immature Granulocytes % 3.6 %; Immature Granulocytes Absolute 0.27 #; Lymphocytes # 0.5 10*3/uL (1.4-4.0); Lymphocytes % 6.1 % (21.3-54.2); Mean Corpuscular HGB Conc 30.8 GM/DL (32-36); Mean Corpuscular Volume 92.5 FL (87-102); Mean Platelet Volume 11.2 FL (9.6-12.0); Monocytes # 0.7 10*3/uL (0.11-0.8); Neutrophils % 81.2 % (38.7-73.9); Platelet Count 257 T/CUMM (130-400); Red Blood Count 2.95 MC/CUMM (3.8-5.5); Red Cell Distribution Width 15.9 % (9.3-17.3); White Blood Count 7.6 T/CUMM (4-12)
[2022-01-05 05:28] LABS: Calcium 8.5 MG/DL (8.5-10.1); Osmolality,Calculated 301.1 MOS/KG (273-304); Potassium 4.7 MMOL/L (3.5-5.1)
[2022-01-05 05:33] LABS: Alanine Aminotransferase 241 U/L (13-56); Albumin 2.7 G/DL (3.4-5.0); Alkaline Phosphatase 73 U/L (45-117); Aspartate Amino Transferase 138 U/L (0-37); Bilirubin,Direct < 0.100 MG/DL (0.0-0.20); Bilirubin,Indirect 0.3 MG/DL (0.0-1.0); Bilirubin,Total < 0.39 MG/DL (0.20-1.00); Total Protein 6.5 G/DL (6.4-8.2)
[2022-01-05] MEDS: ASPIRIN CHEW 81 MG TABLET PO SCH (09:25)
[2022-01-05] MEDS: FAMOTIDINE 20 MG TABLET PO SCH (09:25)
[2022-01-05] MEDS: DOCUSATE SODIUM 100 MG CAPSULE PO SCH ×2 (09:25→21:54)
[2022-01-05] MEDS: allopurinoL 100 MG TABLET PO SCH (09:25)
[2022-01-05] MEDS: cloNIDine 0.1 MG TABLET PO SCH ×3 (09:25→21:54)
[2022-01-05] MEDS: MYCOPHENOLATE MOFETIL 250 MG CAPSULE PO SCH ×2 (09:26→21:53)
[2022-01-05] MEDS: BENZONATATE 100 MG CAPSULE PO SCH ×3 (09:26→21:53)
[2022-01-05] MEDS: busPIRone 5 MG TABLET PO SCH ×2 (09:26→21:54)
[2022-01-05] MEDS: FERROUS SULFATE 325 MG TABLET PO SCH (09:26)
[2022-01-05] MEDS: INSULIN REGULAR 100 UNIT/ML SUBCUT SCH ×4 (09:26→21:53)
[2022-01-05] MEDS: BRIMONIDINE/TIMOLOL OPH SOLN 5 ML BOTTLE BOTH EYES SCH ×2 (09:28→21:54)
[2022-01-05] MEDS: PIPERACILLIN/TAZOBACTAM 3,375 MG in SODIUM CHLORIDE 0.9% 100 ML IV SCH ×2 (09:28→21:58)
[2022-01-05] MEDS: [UNRECOGNIZED DRUG - OTHER] PO SCH ×2 (15:40→21:55)
[2022-01-05] MEDS: MORPHINE 2 MG/1 ML SYRINGE IV PRN (16:44)
[2022-01-05] MEDS: TRAVOPROST 0.004% OPH SOLN 2.5 ML BOTTLE BOTH EYES SCH (21:54)
[2022-01-05] MEDS: ENOXAPARIN 30 MG/0.3 ML SYRINGE SUBCUT SCH (21:54)
[2022-01-06] MEDS: methylPREDNISolone SOD SUC 40 MG/1 ML VIAL IV SCH ×3 (00:09→16:48)
[2022-01-06] MEDS: ALBUTEROL/IPRATROPIUM 3 ML NEB RESP TX SCH ×4 (00:31→20:15)
[2022-01-06 05:28] LABS: % Iron Saturation 63.5 % (18-50); Ferritin 5279.4 ng/mL (8-252)
[2022-01-06 05:30] LABS: Folate 7.66 NG/ML (5.38-24.0)
[2022-01-06 05:49] LABS: Hepatitis B Core IgM Quant 0.18 Index; Hepatitis B Surface Ag Quant < 0.10 Index; Hepatitis B Surface Ag Result Non-Reactive (NonReactive); Hepatitis C Virus Ab Result Non-Reactive (NonReactive)
[2022-01-06] MEDS: FAMOTIDINE 20 MG TABLET PO SCH (09:00)
[2022-01-06] MEDS: BENZONATATE 100 MG CAPSULE PO SCH ×3 (09:01→21:49)
[2022-01-06] MEDS: cloNIDine 0.1 MG TABLET PO SCH ×3 (09:01→21:49)
[2022-01-06] MEDS: DOCUSATE SODIUM 100 MG CAPSULE PO SCH ×2 (09:01→21:48)
[2022-01-06] MEDS: FERROUS SULFATE 325 MG TABLET PO SCH (09:01)
[2022-01-06] MEDS: ASPIRIN CHEW 81 MG TABLET PO SCH (09:01)
[2022-01-06] MEDS: busPIRone 5 MG TABLET PO SCH ×2 (09:01→21:49)
[2022-01-06] MEDS: INSULIN REGULAR 100 UNIT/ML SUBCUT SCH ×4 (09:01→21:48)
[2022-01-06] MEDS: MYCOPHENOLATE MOFETIL 250 MG CAPSULE PO SCH ×2 (09:01→21:49)
[2022-01-06] MEDS: allopurinoL 100 MG TABLET PO SCH (09:01)
[2022-01-06] MEDS: MORPHINE 2 MG/1 ML SYRINGE IV PRN ×2 (09:02→21:48)
[2022-01-06] MEDS: PIPERACILLIN/TAZOBACTAM 3,375 MG in SODIUM CHLORIDE 0.9% 100 ML IV SCH ×2 (09:05→21:55)
[2022-01-06] MEDS: BRIMONIDINE/TIMOLOL OPH SOLN 5 ML BOTTLE BOTH EYES SCH ×3 (09:09→21:50)
[2022-01-06] MEDS: [UNRECOGNIZED DRUG - OTHER] PO SCH ×3 (09:10→23:14)
[2022-01-06 10:46] LABS: Basophils % 0.2 % (0.0-0.8); Hematocrit 31.4 VOL% (35.7-47.0); Hemoglobin 9.7 GM/DL (12.0-16.0); Immature Granulocytes % 5.3 %; Immature Granulocytes Absolute 0.48 #; Lymphocytes # 0.7 10*3/uL (1.4-4.0); Lymphocytes % 7.3 % (21.3-54.2); Mean Corpuscular HGB Conc 30.9 GM/DL (32-36); Mean Corpuscular Volume 92.6 FL (87-102); Mean Platelet Volume 11.3 FL (9.6-12.0); Monocytes # 0.6 10*3/uL (0.11-0.8); Monocytes % 6.8 % (1.7-12.7); Neutrophils % 80.4 % (38.7-73.9); Platelet Count 296 T/CUMM (130-400); Red Blood Count 3.39 MC/CUMM (3.8-5.5); Red Cell Distribution Width 15.8 % (9.3-17.3); White Blood Count 9.1 T/CUMM (4-12)
[2022-01-06 11:05] LABS: Calcium 8.2 MG/DL (8.5-10.1); Osmolality,Calculated 298.5 MOS/KG (273-304); Potassium 5.6 MMOL/L (3.5-5.1)
[2022-01-06 13:24] LABS: Band Neutrophils 1 % (0-10); Lymphocytes 10 % (20-55); Platelet Estimate Normal; Total Cells Counted 100
[2022-01-06] MEDS: SODIUM BICARB INJ 75 MEQ in SODIUM CHLORIDE 0.45% 1,000 ML IV SCH (13:32)
[2022-01-06] MEDS: NEBIVOLOL 10 MG TABLET PO SCH (16:47)
[2022-01-06] MEDS: TRAVOPROST 0.004% OPH SOLN 2.5 ML BOTTLE BOTH EYES SCH ×2 (21:49→23:19)
[2022-01-06] MEDS: ENOXAPARIN 30 MG/0.3 ML SYRINGE SUBCUT SCH (21:49)
[2022-01-07] MEDS: ALBUTEROL/IPRATROPIUM 3 ML NEB RESP TX SCH ×4 (01:13→19:35)
[2022-01-07] MEDS: methylPREDNISolone SOD SUC 40 MG/1 ML VIAL IV SCH ×4 (01:52→23:39)
[2022-01-07 04:50] LABS: Basophils % 0.2 % (0.0-0.8); Eosinophils % 0.1 % (0.00-10.9); Hematocrit 32.2 VOL% (35.7-47.0); Immature Granulocytes % 3.8 %; Immature Granulocytes Absolute 0.53 #; Lymphocytes # 1.2 10*3/uL (1.4-4.0); Lymphocytes % 8.6 % (21.3-54.2); Mean Corpuscular HGB Conc 31.1 GM/DL (32-36); Mean Corpuscular Volume 91.2 FL (87-102); Mean Platelet Volume 11.1 FL (9.6-12.0); Monocytes # 1.7 10*3/uL (0.11-0.8); Monocytes % 12.3 % (1.7-12.7); Platelet Count 315 T/CUMM (130-400); Red Blood Count 3.53 MC/CUMM (3.8-5.5); Red Cell Distribution Width 15.7 % (9.3-17.3)
[2022-01-07 05:09] LABS: Calcium 8.7 MG/DL (8.5-10.1); Osmolality,Calculated 298.5 MOS/KG (273-304); Potassium 4.9 MMOL/L (3.5-5.1)
[2022-01-07 05:15] LABS: Lymphocytes 8 % (20-55); Total Cells Counted 100
[2022-01-07 05:16] LABS: Platelet Estimate Normal
[2022-01-07] MEDS: SODIUM BICARB INJ 75 MEQ in SODIUM CHLORIDE 0.45% 1,000 ML IV SCH ×2 (06:14→21:20)
[2022-01-07] MEDS: INSULIN REGULAR 100 UNIT/ML SUBCUT SCH ×4 (08:27→21:14)
[2022-01-07] MEDS: ASPIRIN CHEW 81 MG TABLET PO SCH (09:53)
[2022-01-07] MEDS: NEBIVOLOL 10 MG TABLET PO SCH (09:53)
[2022-01-07] MEDS: DOCUSATE SODIUM 100 MG CAPSULE PO SCH ×2 (09:53→21:13)
[2022-01-07] MEDS: FAMOTIDINE 20 MG TABLET PO SCH (09:53)
[2022-01-07] MEDS: CHOLECALCIFEROL 1,000 UNIT TABLET PO SCH (09:53)
[2022-01-07] MEDS: BENZONATATE 100 MG CAPSULE PO SCH ×3 (09:53→21:09)
[2022-01-07] MEDS: busPIRone 5 MG TABLET PO SCH ×2 (09:53→21:09)
[2022-01-07] MEDS: cloNIDine 0.1 MG TABLET PO SCH ×3 (09:53→21:08)
[2022-01-07] MEDS: FERROUS SULFATE 325 MG TABLET PO SCH (09:53)
[2022-01-07] MEDS: BRIMONIDINE/TIMOLOL OPH SOLN 5 ML BOTTLE BOTH EYES SCH ×5 (09:53→21:31)
[2022-01-07] MEDS: MYCOPHENOLATE MOFETIL 250 MG CAPSULE PO SCH ×2 (09:54→21:06)
[2022-01-07] MEDS: allopurinoL 100 MG TABLET PO SCH (09:54)
[2022-01-07] MEDS: [UNRECOGNIZED DRUG - OTHER] PO SCH ×3 (09:55→21:21)
[2022-01-07] MEDS: PIPERACILLIN/TAZOBACTAM 3,375 MG in SODIUM CHLORIDE 0.9% 100 ML IV SCH ×2 (09:56→21:18)
[2022-01-07] MEDS: ONDANSETRON 4 MG/2 ML VIAL IV PRN (11:00)
[2022-01-07] MEDS: MORPHINE 2 MG/1 ML SYRINGE IV PRN ×2 (11:02→21:15)
[2022-01-07] MEDS: ENOXAPARIN 30 MG/0.3 ML SYRINGE SUBCUT SCH (21:13)
[2022-01-07] MEDS: TRAVOPROST 0.004% OPH SOLN 2.5 ML BOTTLE BOTH EYES SCH ×2 (21:21→21:31)
[2022-01-08] MEDS: ALBUTEROL/IPRATROPIUM 3 ML NEB RESP TX SCH ×4 (02:29→19:40)
[2022-01-08 05:17] LABS: Basophils % 0.1 % (0.0-0.8); Eosinophils % 0.1 % (0.00-10.9); Hematocrit 32.3 VOL% (35.7-47.0); Hemoglobin 10.3 GM/DL (12.0-16.0); Immature Granulocytes Absolute 0.34 #; Lymphocytes # 1.1 10*3/uL (1.4-4.0); Lymphocytes % 6.8 % (21.3-54.2); Mean Corpuscular HGB Conc 31.9 GM/DL (32-36); Mean Corpuscular Volume 90.5 FL (87-102); Mean Platelet Volume 11.3 FL (9.6-12.0); Monocytes # 1.4 10*3/uL (0.11-0.8); Monocytes % 8.5 % (1.7-12.7); Neutrophils % 82.5 % (38.7-73.9); Platelet Count 325 T/CUMM (130-400); Red Blood Count 3.57 MC/CUMM (3.8-5.5); Red Cell Distribution Width 15.6 % (9.3-17.3); White Blood Count 16.6 T/CUMM (4-12)
[2022-01-08 05:42] LABS: Calcium 8.4 MG/DL (8.5-10.1); Osmolality,Calculated 301.2 MOS/KG (273-304); Potassium 5.1 MMOL/L (3.5-5.1)
[2022-01-08] MEDS: INSULIN REGULAR 100 UNIT/ML SUBCUT SCH ×3 (08:51→22:33)
[2022-01-08] MEDS: MYCOPHENOLATE MOFETIL 250 MG CAPSULE PO SCH ×2 (09:37→22:26)
[2022-01-08] MEDS: cloNIDine 0.1 MG TABLET PO SCH ×3 (09:37→22:25)
[2022-01-08] MEDS: methylPREDNISolone SOD SUC 40 MG/1 ML VIAL IV SCH ×3 (09:37→23:22)
[2022-01-08] MEDS: ASPIRIN CHEW 81 MG TABLET PO SCH (09:37)
[2022-01-08] MEDS: FAMOTIDINE 20 MG TABLET PO SCH (09:37)
[2022-01-08] MEDS: NEBIVOLOL 10 MG TABLET PO SCH (09:37)
[2022-01-08] MEDS: [UNRECOGNIZED DRUG - OTHER] PO SCH ×3 (09:38→22:34)
[2022-01-08] MEDS: allopurinoL 100 MG TABLET PO SCH (09:38)
[2022-01-08] MEDS: BRIMONIDINE/TIMOLOL OPH SOLN 5 ML BOTTLE BOTH EYES SCH ×4 (09:38→22:32)
[2022-01-08] MEDS: CHOLECALCIFEROL 1,000 UNIT TABLET PO SCH (09:38)
[2022-01-08] MEDS: busPIRone 5 MG TABLET PO SCH ×2 (09:38→22:24)
[2022-01-08] MEDS: BENZONATATE 100 MG CAPSULE PO SCH ×3 (09:38→22:24)
[2022-01-08] MEDS: DOCUSATE SODIUM 100 MG CAPSULE PO SCH ×2 (09:38→22:27)
[2022-01-08] MEDS: FERROUS SULFATE 325 MG TABLET PO SCH (09:38)
[2022-01-08] MEDS: PIPERACILLIN/TAZOBACTAM 3,375 MG in SODIUM CHLORIDE 0.9% 100 ML IV SCH ×2 (09:45→22:55)
[2022-01-08] MEDS: SODIUM BICARB INJ 75 MEQ in SODIUM CHLORIDE 0.45% 1,000 ML IV SCH (17:11)
[2022-01-08] MEDS: MORPHINE 2 MG/1 ML SYRINGE IV PRN (19:54)
[2022-01-08] MEDS: TRAVOPROST 0.004% OPH SOLN 2.5 ML BOTTLE BOTH EYES SCH ×2 (22:27→23:41)
[2022-01-08] MEDS: ENOXAPARIN 30 MG/0.3 ML SYRINGE SUBCUT SCH (22:28)
[2022-01-09] MEDS: ALBUTEROL/IPRATROPIUM 3 ML NEB RESP TX SCH ×4 (00:14→19:40)
[2022-01-09 05:52] LABS: Basophils % 0.2 % (0.0-0.8); Eosinophils % 0.1 % (0.00-10.9); Hematocrit 30.6 VOL% (35.7-47.0); Hemoglobin 9.6 GM/DL (12.0-16.0); Immature Granulocytes % 1.7 %; Immature Granulocytes Absolute 0.34 #; Lymphocytes # 0.8 10*3/uL (1.4-4.0); Lymphocytes % 3.9 % (21.3-54.2); Mean Corpuscular HGB Conc 31.4 GM/DL (32-36); Mean Corpuscular Volume 91.3 FL (87-102); Mean Platelet Volume 11.6 FL (9.6-12.0); Monocytes # 1.1 10*3/uL (0.11-0.8); Monocytes % 5.7 % (1.7-12.7); Neutrophils % 88.4 % (38.7-73.9); Platelet Count 323 T/CUMM (130-400); Red Blood Count 3.35 MC/CUMM (3.8-5.5); Red Cell Distribution Width 15.9 % (9.3-17.3); White Blood Count 19.7 T/CUMM (4-12)
[2022-01-09 06:10] LABS: Calcium 8.2 MG/DL (8.5-10.1); Osmolality,Calculated 302.5 MOS/KG (273-304); Potassium 4.7 MMOL/L (3.5-5.1)
[2022-01-09 06:29] LABS: Acanthocytes Few; Anisocytosis 1+; Burr Cells Few; Lymphocytes 3 % (20-55); Platelet Estimate Normal; Poikilocytosis Slight; Total Cells Counted 100
[2022-01-09 06:30] LABS: Ovalocytes Few; Tear Drop Cells Few
[2022-01-09] MEDS: methylPREDNISolone SOD SUC 40 MG/1 ML VIAL IV SCH ×3 (07:25→22:47)
[2022-01-09] MEDS: INSULIN REGULAR 100 UNIT/ML SUBCUT SCH ×4 (09:20→21:36)
[2022-01-09] MEDS: CHOLECALCIFEROL 1,000 UNIT TABLET PO SCH (10:09)
[2022-01-09] MEDS: MYCOPHENOLATE MOFETIL 250 MG CAPSULE PO SCH ×2 (10:09→21:34)
[2022-01-09] MEDS: FERROUS SULFATE 325 MG TABLET PO SCH (10:10)
[2022-01-09] MEDS: BENZONATATE 100 MG CAPSULE PO SCH ×3 (10:10→21:35)
[2022-01-09] MEDS: cloNIDine 0.1 MG TABLET PO SCH ×3 (10:10→21:35)
[2022-01-09] MEDS: FAMOTIDINE 20 MG TABLET PO SCH (10:10)
[2022-01-09] MEDS: allopurinoL 100 MG TABLET PO SCH (10:10)
[2022-01-09] MEDS: ASPIRIN CHEW 81 MG TABLET PO SCH (10:10)
[2022-01-09] MEDS: NEBIVOLOL 10 MG TABLET PO SCH (10:10)
[2022-01-09] MEDS: DOCUSATE SODIUM 100 MG CAPSULE PO SCH ×2 (10:11→21:35)
[2022-01-09] MEDS: busPIRone 5 MG TABLET PO SCH ×2 (10:11→21:35)
[2022-01-09] MEDS: BRIMONIDINE/TIMOLOL OPH SOLN 5 ML BOTTLE BOTH EYES SCH ×4 (10:11→21:35)
[2022-01-09] MEDS: [UNRECOGNIZED DRUG - OTHER] PO SCH ×3 (10:12→21:36)
[2022-01-09] MEDS: SODIUM BICARB INJ 75 MEQ in SODIUM CHLORIDE 0.45% 1,000 ML IV SCH (10:20)
[2022-01-09] MEDS: cefTRIAXone 1,000 MG in SODIUM CHLORIDE 0.9% 100 ML IV SCH (10:28)
[2022-01-09] MEDS: MORPHINE 2 MG/1 ML SYRINGE IV PRN (13:45)
[2022-01-09] MEDS: TRAVOPROST 0.004% OPH SOLN 2.5 ML BOTTLE BOTH EYES SCH ×2 (21:34→21:35)
[2022-01-09] MEDS: ENOXAPARIN 30 MG/0.3 ML SYRINGE SUBCUT SCH (21:36)
[2022-01-10] MEDS: SODIUM BICARB INJ 75 MEQ in SODIUM CHLORIDE 0.45% 1,000 ML IV SCH ×3 (02:00→18:30)
[2022-01-10 05:32] LABS: Basophils % 0.1 % (0.0-0.8); Eosinophils # 0.2 10*3/uL (0.0-0.87); Eosinophils % 1.4 % (0.00-10.9); Hematocrit 27.4 VOL% (35.7-47.0); Hemoglobin 8.6 GM/DL (12.0-16.0); Immature Granulocytes % 1.8 %; Immature Granulocytes Absolute 0.31 #; Lymphocytes # 1.6 10*3/uL (1.4-4.0); Lymphocytes % 9.4 % (21.3-54.2); Mean Corpuscular HGB Conc 31.4 GM/DL (32-36); Mean Platelet Volume 10.7 FL (9.6-12.0); Monocytes # 1.7 10*3/uL (0.11-0.8); Monocytes % 9.8 % (1.7-12.7); Neutrophils % 77.5 % (38.7-73.9); Platelet Count 260 T/CUMM (130-400); Red Blood Count 3.01 MC/CUMM (3.8-5.5); Red Cell Distribution Width 15.9 % (9.3-17.3); White Blood Count 17.2 T/CUMM (4-12)
[2022-01-10 06:03] LABS: Calcium 8.1 MG/DL (8.5-10.1); Osmolality,Calculated 307.1 MOS/KG (273-304); Potassium 4.2 MMOL/L (3.5-5.1)
[2022-01-10 06:05] LABS: Uric Acid 7.8 MG/DL (2.6-6.0)
[2022-01-10] MEDS: methylPREDNISolone SOD SUC 40 MG/1 ML VIAL IV SCH ×3 (06:25→23:53)
[2022-01-10] MEDS: ALBUTEROL/IPRATROPIUM 3 ML NEB RESP TX SCH ×4 (07:27→20:44)
[2022-01-10] MEDS: INSULIN REGULAR 100 UNIT/ML SUBCUT SCH ×4 (07:46→21:56)
[2022-01-10] MEDS: BRIMONIDINE/TIMOLOL OPH SOLN 5 ML BOTTLE BOTH EYES SCH ×4 (09:15→21:56)
[2022-01-10] MEDS: cefTRIAXone 1,000 MG in SODIUM CHLORIDE 0.9% 100 ML IV SCH (09:16)
[2022-01-10] MEDS: NEBIVOLOL 10 MG TABLET PO SCH (09:17)
[2022-01-10] MEDS: FERROUS SULFATE 325 MG TABLET PO SCH (09:17)
[2022-01-10] MEDS: BENZONATATE 100 MG CAPSULE PO SCH ×3 (09:17→21:51)
[2022-01-10] MEDS: FAMOTIDINE 20 MG TABLET PO SCH (09:17)
[2022-01-10] MEDS: cloNIDine 0.1 MG TABLET PO SCH ×3 (09:18→21:51)
[2022-01-10] MEDS: allopurinoL 100 MG TABLET PO SCH (09:18)
[2022-01-10] MEDS: busPIRone 5 MG TABLET PO SCH ×2 (09:18→21:51)
[2022-01-10] MEDS: ASPIRIN CHEW 81 MG TABLET PO SCH (09:18)
[2022-01-10] MEDS: MYCOPHENOLATE MOFETIL 250 MG CAPSULE PO SCH ×2 (09:18→21:52)
[2022-01-10] MEDS: CHOLECALCIFEROL 1,000 UNIT TABLET PO SCH (09:18)
[2022-01-10] MEDS: [UNRECOGNIZED DRUG - OTHER] PO SCH ×3 (09:20→21:55)
[2022-01-10] MEDS: DOCUSATE SODIUM 100 MG CAPSULE PO SCH ×2 (09:47→21:52)
[2022-01-10 16:41] LABS: Protein/Creatinine Ratio,Urine 0.6 RATIO
[2022-01-10] MEDS: ONDANSETRON 4 MG/2 ML VIAL IV PRN (18:30)
[2022-01-10] MEDS: ENOXAPARIN 30 MG/0.3 ML SYRINGE SUBCUT SCH (21:52)
[2022-01-10] MEDS: TRAVOPROST 0.004% OPH SOLN 2.5 ML BOTTLE BOTH EYES SCH ×2 (21:52→21:57)
[2022-01-10] MEDS ORDERED: traMADol 50 MG TABLET PO PRN (23:38)
[2022-01-11] MEDS: ACETAMINOPHEN 325 MG TABLET PO PRN
[2022-01-11] MEDS: ALBUTEROL/IPRATROPIUM 3 ML NEB RESP TX SCH ×4 (00:36→20:25)
[2022-01-11] MEDS: INSULIN REGULAR 100 UNIT/ML SUBCUT SCH ×4 (08:00→21:19)
[2022-01-11] MEDS: NEBIVOLOL 10 MG TABLET PO SCH (08:55)
[2022-01-11] MEDS: cloNIDine 0.1 MG TABLET PO SCH ×3 (08:56→21:07)
[2022-01-11] MEDS: allopurinoL 100 MG TABLET PO SCH (08:56)
[2022-01-11] MEDS: FERROUS SULFATE 325 MG TABLET PO SCH (08:56)
[2022-01-11] MEDS: busPIRone 5 MG TABLET PO SCH ×2 (08:56→21:08)
[2022-01-11] MEDS: CHOLECALCIFEROL 1,000 UNIT TABLET PO SCH (08:56)
[2022-01-11] MEDS: ASPIRIN CHEW 81 MG TABLET PO SCH (08:56)
[2022-01-11] MEDS: MYCOPHENOLATE MOFETIL 250 MG CAPSULE PO SCH ×2 (08:56→21:07)
[2022-01-11] MEDS: BENZONATATE 100 MG CAPSULE PO SCH ×3 (08:56→21:07)
[2022-01-11] MEDS: FAMOTIDINE 20 MG TABLET PO SCH (08:56)
[2022-01-11] MEDS: BRIMONIDINE/TIMOLOL OPH SOLN 5 ML BOTTLE BOTH EYES SCH ×2 (08:59→21:09)
[2022-01-11] MEDS: methylPREDNISolone SOD SUC 40 MG/1 ML VIAL IV SCH ×3 (09:01→22:16)
[2022-01-11] MEDS: cefTRIAXone 1,000 MG in SODIUM CHLORIDE 0.9% 100 ML IV SCH (09:01)
[2022-01-11] MEDS: [UNRECOGNIZED DRUG - OTHER] PO SCH ×5 (09:02→21:21)
[2022-01-11] MEDS: DOCUSATE SODIUM 100 MG CAPSULE PO SCH ×2 (09:02→21:07)
[2022-01-11] MEDS: SODIUM BICARB INJ 75 MEQ in SODIUM CHLORIDE 0.45% 1,000 ML IV SCH (12:17)
[2022-01-11] MEDS: ENOXAPARIN 30 MG/0.3 ML SYRINGE SUBCUT SCH (21:08)
[2022-01-11] MEDS: TRAVOPROST 0.004% OPH SOLN 2.5 ML BOTTLE BOTH EYES SCH (21:09)
[2022-01-12] MEDS: ACETAMINOPHEN 325 MG TABLET PO PRN ×2 (01:07→14:57)
[2022-01-12] MEDS: ALBUTEROL/IPRATROPIUM 3 ML NEB RESP TX SCH ×3 (01:57→13:00)
[2022-01-12] MEDS: methylPREDNISolone SOD SUC 40 MG/1 ML VIAL IV SCH ×2 (07:01→14:57)
[2022-01-12] MEDS: SODIUM BICARB INJ 75 MEQ in SODIUM CHLORIDE 0.45% 1,000 ML IV SCH (07:39)
[2022-01-12 08:19] LABS: Calcium 7.9 MG/DL (8.5-10.1); Osmolality,Calculated 302.2 MOS/KG (273-304); Potassium 4.9 MMOL/L (3.5-5.1)
[2022-01-12] MEDS: BENZONATATE 100 MG CAPSULE PO SCH ×2 (09:07→14:57)
[2022-01-12] MEDS: MYCOPHENOLATE MOFETIL 250 MG CAPSULE PO SCH (09:07)
[2022-01-12] MEDS: CHOLECALCIFEROL 1,000 UNIT TABLET PO SCH (09:07)
[2022-01-12] MEDS: FERROUS SULFATE 325 MG TABLET PO SCH (09:07)
[2022-01-12] MEDS: ASPIRIN CHEW 81 MG TABLET PO SCH (09:07)
[2022-01-12] MEDS: NEBIVOLOL 10 MG TABLET PO SCH (09:07)
[2022-01-12] MEDS: busPIRone 5 MG TABLET PO SCH (09:07)
[2022-01-12] MEDS: FAMOTIDINE 20 MG TABLET PO SCH (09:07)
[2022-01-12] MEDS: cloNIDine 0.1 MG TABLET PO SCH ×2 (09:07→14:57)
[2022-01-12] MEDS: DOCUSATE SODIUM 100 MG CAPSULE PO SCH (09:07)
[2022-01-12] MEDS: allopurinoL 100 MG TABLET PO SCH (09:07)
[2022-01-12] MEDS: BRIMONIDINE/TIMOLOL OPH SOLN 5 ML BOTTLE BOTH EYES SCH (09:08)
[2022-01-12] MEDS: INSULIN REGULAR 100 UNIT/ML SUBCUT SCH ×3 (09:08→15:41)
[2022-01-12] MEDS: [UNRECOGNIZED DRUG - OTHER] PO SCH ×2 (09:09→14:57)
[2022-01-12] MEDS: cefTRIAXone 1,000 MG in SODIUM CHLORIDE 0.9% 100 ML IV SCH (09:16)
[2022-01-12 17:33] VITALS: BP 179/88
[2022-01-12] MEDS: ONDANSETRON 4 MG/2 ML VIAL IV PRN (18:44)
== END 2022-01-12 19:00 | DRG 194 ==
LOC: N.ED 13:00 → N.EDINP 15:31 → N.TELEN 18:09
PROVIDERS: ADMIT Internal Medicine; ATTEND Internal Medicine